=== PATIENT | female | born 1985 | race Caucasian/White ===

== ENCOUNTER 2024-09-28 08:13 | Inpatient (IN) ==
[2024-09-28] MEDS: LACTATED RINGER'S 1,000 ML IV PRN (09:10)
[2024-09-28] MEDS ORDERED: LIDOCAINE 1% LOCAL 20 ML VIAL INFIL PRN (09:14)
[2024-09-28] MEDS: BUPIVACAINE 0.25% PF 30 ML VIAL ONE (09:41)
[2024-09-28] MEDS: fentANYL 2 MCG/ML BUPIVacaine 0.125%-NSS 100ML BAG ONE (09:41)
[2024-09-28] MEDS: LIDOCAINE 2%/EPINEPHRINE 1:200,000 20 ML PF ONE (09:47)
[2024-09-28] MEDS: SODIUM CHLORIDE 0.9% PF INJ 10 ML VIAL ONE (09:47)
[2024-09-28] MEDS: fentaNYL citrate PF 100 MCG/2 ML VIAL ONE (09:47)
[2024-09-28] MEDS: PENICILLIN GK 6 MU in DEXTROSE 5% 250 ML IV STA (09:54)
--- NOTE | 2024-09-28 09:57 | Anesthesiology Consultation ---
Date of Service September 28, 2024 Assessment & Plan Chart Review Chart Review: Acceptable Risk for Labor Epidural Consults Requested none History Height/Weight Height: 5 ft Weight: 96.162 kg Allergies Allergy/AdvReac Type Severity Reaction Status Date / Time No Known Drug Allergies AdvReac Unknown Verified 09/28/24 08:44 Medications Home Medications Medication Instructions Recorded Confirmed Last Taken aspirin 81 mg chewable tablet 81 mg PO DAILY 09/28/24 09/28/24 09/27/24 07:00 omeprazole magnesium 20 mg 20 mg PO DAILY 09/28/24 09/28/24 09/27/24 07:00 tablet,delayed release (Prilosec OTC) vits no.124-ferrous fum 1 tab PO HS 09/28/24 09/28/24 09/27/24 21:00 27 mg iron-folic acid 800 mcg tablet ( Vitamin) Active Medications Generic Name Dose Route Start Last Admin Trade Name Freq PRN Reason Stop Dose Admin Lactated Ringer's 1,000 mls @ 125 mls/hr 09/28/24 09:14 09/28/24 09:54 Lr IV 09/29/24 09:13 0 mls/hr .Q8H PRN Infusion L&D Protocol Protocol Penicillin G Potassium 6 mu/ 262 mls @ 250 mls/hr 09/28/24 09:14 09/28/24 09:54 Dextrose IV 09/28/24 10:16 250 mls/hr NOW STA Administration Past Medical History Medical History (Updated 09/28/24 @ 08:43 by Slime Arambula RN) Overactive bladder Past Surgical History Surgical History (Updated 09/28/24 @ 08:43 by Slime Arambula RN) H/O wisdom tooth extraction Social History Smoking Status: Never smoker Hx Alcohol Use: No Hx Substance Use: No Physical Exam Vital Signs Last Vital Signs Temp 36.6 C 09/28/24 08:31 Pulse 84 09/28/24 09:54 Resp 20 09/28/24 08:31 BP 133/70 09/28/24 09:44 Pulse Ox 100 09/28/24 09:54
[2024-09-28] MEDS ORDERED: fentANYL 2 MCG/ML BUPIVacaine 0.125%-NSS 100ML BAG EPI PRN (09:58)
[2024-09-28] MEDS ORDERED: ROPIVACAINE 0.5% PF 5 MG/ML 20 ML VIAL EPI PRN (09:58)
[2024-09-28] MEDS ORDERED: ePHEDrine sulfate 50 MG/ML AMP IV PRN (09:58)
[2024-09-28] MEDS ORDERED: fentaNYL citrate PF 100 MCG/2 ML VIAL EPI PRN (09:58)
[2024-09-28] MEDS ORDERED: SODIUM CHLORIDE 0.9% PF INJ 10 ML VIAL EPI PRN (09:58)
[2024-09-28] MEDS ORDERED: LIDOCAINE 2% MPF LOCAL 5 ML VIAL EPI PRN (09:58)
[2024-09-28] MEDS ORDERED: NALBUPHINE HCL INJ 10 MG/ML AMP IV PRN (09:58)
[2024-09-28] MEDS ORDERED: NALOXONE HCL 0.4 MG/1 ML VIAL/CARP IV PRN (09:58)
[2024-09-28] MEDS ORDERED: fentaNYL citrate PF 100 MCG/2 ML VIAL EPI STA (09:58)
[2024-09-28] MEDS ORDERED: NALOXONE HCL 1 MG in SODIUM CHLORIDE 0.9% 1,000 ML IV PRN (09:58)
[2024-09-28] MEDS ORDERED: BUPIVACAINE 0.25% PF 30 ML VIAL EPI PRN (09:58)
[2024-09-28] MEDS ORDERED: LIDOCAINE 2%/EPINEPHRINE 1:200,000 20 ML PF EPI STA (09:58)
[2024-09-28] MEDS ORDERED: diphenhydrAMINE 50 MG/ML VIAL IV PRN (09:58)
[2024-09-28] MEDS ORDERED: BUPIVACAINE 0.25% PF 30 ML VIAL EPI STA (09:58)
[2024-09-28] MEDS ORDERED: SODIUM CHLORIDE 0.9% PF INJ 10 ML VIAL EPI STA (09:58)
--- NOTE | 2024-09-28 10:32 | Obstetrical Progress Note ---
Date of Service September 28, 2024 Assessment & Plan Admission and Anticipated Discharge Date Admission Date: September 28, 2024 Subjective 39yo @ 36 + weeks resent in labor FHR; CAT1' Ctx 2-3min Bedside sono; VT VE; 10/SROM- clear fluid at 05;00hrs GBs obtained Started on PCN for GBs Prophylaxis Anticipate VD Results & Data Vital Signs (Past 12 Hours) Vital Signs Temp Pulse Resp BP Pulse Ox 09/28/24 10:25 83 09/28/24 10:25 132/64 09/28/24 10:24 99 09/28/24 10:24 87 09/28/24 10:20 75 09/28/24 10:20 127/55 L 09/28/24 10:19 100 09/28/24 10:19 87 09/28/24 10:16 20 09/28/24 10:16 20 09/28/24 10:16 80 09/28/24 10:16 139/63 09/28/24 10:14 98 09/28/24 10:14 90 09/28/24 10:11 81 09/28/24 10:11 124/91 09/28/24 10:09 100 09/28/24 10:09 83 09/28/24 10:04 100 09/28/24 10:04 78 09/28/24 10:01 20 09/28/24 10:01 20 09/28/24 09:59 100 09/28/24 09:59 92 H 09/28/24 09:54 100 09/28/24 09:54 84 09/28/24 09:49 100 09/28/24 09:49 91 H 09/28/24 09:44 100 09/28/24 09:44 93 H 09/28/24 09:44 133/70 09/28/24 09:42 20 09/28/24 09:42 20 09/28/24 09:42 87 09/28/24 09:42 130/76 09/28/24 09:40 84 09/28/24 09:40 125/69 09/28/24 09:39 97 09/28/24 09:39 88 09/28/24 09:38 83 09/28/24 09:38 123/67 09/28/24 09:36 81 09/28/24 09:36 109/64 04/08/25 09:34 97 09/28/24 09:34 82 09/28/24 09:34 75 09/28/24 09:34 140/70 09/28/24 09:32 71 09/28/24 09:32 123/76 09/28/24 09:29 100 09/28/24 09:29 81 09/28/24 09:26 94 09/28/24 09:26 81 09/28/24 09:24 97 09/28/24 09:24 81 09/28/24 09:23 87 09/28/24 09:23 138/82 09/28/24 08:31 36.6 C 20 09/28/24 08:29 72 144/78 H
[2024-09-28 10:42] LABS: Hematocrit (blood only) 33.4 % (37.0-47.0); Mean Corpuscular Hemoglobin 30.5 pg (25.0-34.0); Mean Corpuscular Hgb Conc 32.9 g/dL (32.0-36.0); Mean Corpuscular Volume 92.5 fL (80.0-100.0); Mean Platelet Volume 11.9 fL (9.4-12.4); Platelet Count 210 K/uL (130-400); RDW Coefficient of Variation 13.6 % (11.5-14.5); Red Blood Count 3.61 M/uL (4.20-5.40); White Blood Count 15.63 K/ul (4.8-10.8)
[2024-09-28] MEDS ORDERED: PENICILLIN GK 3 MU in DEXTROSE 5% 100 ML IV PRN (12:14)
[2024-09-28] MEDS: OXYTOCIN 30 UNITS/NSS 30 UNITS/500 ML BAG IV PRN (12:34)
[2024-09-28] MEDS: METHYLERGONOVINE MALEATE 0.2 MG/ML AMP ONE (12:37)
[2024-09-28] MEDS: miSOPROStoL 200 MCG TAB ONE (12:38)
[2024-09-28] MEDS: ePHEDrine sulfate 50 MG/ML AMP ONE (12:39)
[2024-09-28] MEDS ORDERED: miSOPROStoL 200 MCG TAB PR ONE (12:42)
[2024-09-28] MEDS ORDERED: DIPHTHER/TETAN/PERTUS Vaccine (Tdap, Adol/Adult) 0.5mL IM ONE (12:42)
[2024-09-28] MEDS ORDERED: METHYLERGONOVINE MALEATE 0.2 MG/ML AMP IM ONE (12:42)
[2024-09-28] MEDS ORDERED: bisacodyL 10 MG SUPP PR PRN (12:42)
[2024-09-28] MEDS ORDERED: OXYTOCIN 30 UNITS/NSS 30 UNITS/500 ML BAG IV PRN (12:42)
[2024-09-28] MEDS ORDERED: HYDROCORTISONE ACETATE 25 MG SUPP PR PRN (12:42)
[2024-09-28] MEDS ORDERED: ACETAMINOPHEN 325 MG TAB PO PRN (12:42)
--- NOTE | 2024-09-28 12:45 | Delivery Summary ---
Vaginal Delivery Summary Date of Service September 28, 2024 Vaginal Delivery Summary DELIVERY NOTE Patient delivered a live male in left occiput anterior presentation there was left shoulder cord which was easily reduced. was delivered and placed on mother's abdomen. Delayed cord clamping was performed. Cord blood is obtained Cord gasses are obtainded Meconium was mild Placenta is spontaneously delivered. Placenta appears grossly normal and has 3 vessel cord Inspection of the perineum showed a second-degree midline laceration. Laceration is repaired in layers with 2-0 Vicryl in layers Rectal exam post repair showed good sphincter tone no sutures palpated in the r ectum. Quantitative blood loss is 180 cc per Infants weight and scores are in the pediatric record Mother and baby are stable in in the recovery
[2024-09-28 13:18] LABS: Base Excess Cord Arterial Bld -5.2 mEq/L (-9-1.8); CO2 Cord Arterial Blood 40 mmHg (39.1-73.5); HCO3 Cord Arterial Blood 21 mmol/L (19.7-28.5); Oxygen Sat Cord Arterial Blood 65.1 % (<60); PO2 Cord Arterial Blood 31 mmHg (4.1-31.7); pH Cord Arterial Blood 7.32 (7.1-7.38)
[2024-09-28 13:20] LABS: Base Excess Cord Venous Blood -3.8 mEq/L (-7.7-1.9); Cord Venous Blood HCO3 25 mmol/L (18.4-26.8); Cord Venous Blood PCO2 61 mmHg (30.4-57.2); Cord Venous Blood PO2 < 20 mmHg (14.1-43.3); Cord Venous Blood pH 7.22 (7.20-7.44); O2 Saturation Cord Venous Bld < 60.0 % (<68)
--- OUTSIDE RECORDS SUMMARY | 2024-09-28 14:39 | External Medical Summary | Summary of Care ---
Author Name Unknown Organization [facility] Address [address] [facility] [place] [address] Phone [phone] Care Team Providers Care Roll Operator Name Role Phone Von Lim MD Primary Care Provider [phone] Reason for Visit * Reason Comments Status Check Anemia Follow-Up Encounter Details Date Type Department Care Team (Late st Contact Info) Description 09/17/2024 2:30 PM EDT Pharmacy Pharmacy, [facility] [address] [place], [place] [id number] Clinic, [facility] [address] [place] [address] Iron deficiency anemia, unspecified iron deficiency anemia type*; Antepartum anemia complicating Allergies No known active allergiesdocumented as of this encounter (statuses as of 09/17/2024) Medications Loratadine 10 MG Oral Capsule Take 1 Capsule by mouth in the morning. Active 28-0.8 MG Oral Tablet Take by mouth. Active Aspirin 81 MG Oral Tablet Chewable Take 1 Tablet by mouth in the morning. 04/19/2024 Active Omeprazole 20 MG Oral Capsule Delayed Release (PriLOSEC) Take 1 Capsule by mouth in the morning. 30 Capsule 3 09/01/2024 Active documented as of this encounter (statuses as of 09/17/2024) Active Problems Problem Noted Date Diagnosed Date Iron deficiency anemia 08/23/2024 Antepartum anemia complicating 025 Abnormal glucose tolerance in mother complicatin g 05/18/2024 Overview (05/18/2024): Failed early glucola. 3hr ordered High-risk 05/17/2024 Obesity in , antepartum 05/17/2024 Overview (05/17/2024): Early GTT The patient's pre-gravid BMI is 31.76. Antepartum multigravida of advanced maternal age 1004/19/2024 Obesity, Class I, BMI 30.0-34.9 (see actual BMI) 05/30/2021 OAB (overactive bladder) 05/28/2021 Estimated Date of Delivery Comme nts Yes 10/25/2024 Based on last me nstrual period of 01/19/2024 (Exact Date) documented as of this encounter (statuses as of 09/17/2024) Resolved Problems Problem Noted Date Diagnosed Date Resolved Date NO KNOWN PROBLEMS 10/31/2008 05/28/2021 documented as of this encounter (statuses as of 09/17/2024) Immunizations Name Administration Dates Next Due H1N1 2009 Influenza, IM 07/28/2009 Seasonal Influenza Vac., MDV , IM, 0.5 mL (Fluzone) 04/25/2017,05/24/2014,07/28/2009 Seasonal Influenza, PF, 6 M & above, IM , (FluLaval or Fluzone) 05/31/2022,05/12/2020 Seasonal Influenza, Quadriva lent, No Preserve, IM 04/20/2016 TDAP (age 10 and older)(Boostrix) 05/31/2022 TDAP, Age 7 and older, IM (Adacel) 08/04,02/14/2011,07/28/2009(Deferre d: Patient Refused) documented as of this encounter Social History Tobacco Use Types Packs/Day Years Used Date Smoking Tobacco: Never Smokeless Tobacco: Never Alcohol Use Standard Drinks/Week Comments Not Currently 0 (1 standard drink = 0.6 oz pur e alcohol) rarely PHQ-2 Answer Date Recorded PHQ Adult Total Score 0 06/04/2024 Hunger Vital Sign Answer Date Recorded Within the past 12 months, y ou worried that your food would run out before you got the money to buy more. Never true 06/04/20 24 Within the past 12 months, t he food you bought just didn't last and you didn't have money to get more. Never true 06/04/2024 [place] Depression Scale Answer Date Recorded [place] Depression Scale Total 6 09/15/2024 The thought of harming myself has occurred to me . Never 09/15/2024 Childcare Answer Date Recorded Do you feel overwhelmed with taking care of a child, family member or friend? No 06/04/2024 Does your family need help f inding childcare? (Household - for ages 0-17 years) Not on file 06/04/2024 Clothing Answer Date Recorded Have you been unable to get clothing when it was really needed? No 06/04/2024 Is your family able to get c lothes or diapers when needed? (Household - for ages 0-17 years) Not on file 06/04/2024 Personal Safety Answer Date Recorded Do you feel unsafe or have concerns for your saf ety? No 06/04/2024 Do you have concerns for you r family's safety? (Household - for ages 0-17 years) Not on file 06/04/2024 Utilities Answer Date Recorded Do you have trouble paying y our heating, water, or electric bill? No 06/04/2024 Is your family able to pay t he heat, water, or electric bill? (Household - for ages 0-17 years) Not on file 06/04/2024 Does your family have access to good internet? (Household - for ages 0-17 years) Not on file 06/04/2024 Employment Status Answer Date Recorded Are you unemployed or without regular income? No 06/04/2024 Does the household have a re gular source of income? (Household - for ages 0-17 years) Not on file 06/04/2024 Social Connections Answer Date Recorded How often do you feel lonely or isolated from th ose around you? Rarely 06/04/2024 Financial Resource Strain Answer Date R ecorded Do you have any trouble payi ng for your medications, or do you think you might in the future? No 06/04/2024 Does your family have troubl e paying for medicine? (Household - for ages 0-17 years) Not on file 06/04/2024 Transportation Needs Answer Date Record ed Do you have trouble getting a ride to medical visits or work? (Adult - for ages 18 years and over) Not on file 06/04/2024 Does your family have a hard time getting a ride to doctors visits? (Household - for ages 0-17 years) Not on file 06/04/2024 Has lack of transportation k ept you from medical appointments, meetings, work, or from getting things needed for daily living? Check all that apply. No 06/04/2024 Do you (or your family) have trouble finding or paying for a ride (transportation)? (Household - for ages 0-17 years) Not on file 06/04/2024 Housing Stability Answer Date Recorded Do you currently live in a s helter or have no steady place to sleep at night? No 06/04/2024 Do you think you are at risk of becoming homeless? (Adult - for ages 18 years and over) Not on file 06/04/2024 Does your family worry about paying for your home or becoming homeless? (Household - for ages 0-17 years) Not on file 1 08/05/2023 Are you homeless or worried that you might be in the future? No 06/04/2024 Are you (or your family) ishmael eless or worried that you might be in the future? (Household - for ages 0-17 years) Not on file Food Insecurity Answer Date Recorded Do you need food for this week? No 06/04/2024 Are you able to get enough f ood for your family? (Household - for ages 0-17 years) Not on file 06/04/2024 Does your family need food t his week? (Household - for ages 0-17 years) Not on file 06/04/2024 Do you always have enough fo od for your family? (Household - for ages 0-17 years) Not on file 06/04/2024 Food Insecurity Answer Date Recorded Within the past 12 months, y ou worried that your food would run out before you got the money to buy more. Never true 06/04/20 24 Within the past 12 months, t he food you bought just didn't last and you didn't have money to get more. Never true 06/04/2024 Do you need food for this week? No 06/04/2024 Estimated Date of Delivery Comme nts Yes 10/25/2024 Based on last me nstrual period of 01/19/2024 (Exact Date) Sex and Gender Information Value Date Recorded Sex Assigned at Female 10/30/2022 7:49 AM EDT Legal Sex Female 7:19 AM EST Gender Identity Female 10/30/2022 7:49 AM EDT Sexual Orientation Straight 10/30/2022 7: 49 AM EDT Occupation Industry Job Start Date Job End Date [employer] Not on file Not on file Not on fi le documented as of this encounter Progress Notes * Imani Smalls RPh - 09/17/2024 12:47 PM EDT CBCd, ferritin, iron screen, retic panel, B12, FA ordered for 09/29/24. Imani Smalls PharmD, [facility] Clinical Pharmacist [facility] (P: [phone]) 09/17/2024 12:47 PM * Asmita Garcia PHARM Tech - 09/17/2024 11:43 AM EDT Patient Phone Numbers Call to patient to schedule labs. Spoke to pt, pt scheduled labs on 09/29 before OB appt. Patient received Infed on 09/03. Labs due on 09/29. GA: 34w4d Estimated Date of Delivery: 10/25/24 Pharmacist - please place appropriate lab orders. Thank you, Asmita Garcia Pile Driver Operator Helper [facility] 09/17/2024,11:43 AM documented in this encounter Plan of Treatment Upcoming Encounters Date Type Department Care Team (Late st Contact Info) Description 09/29/2024 7:45 AM EDT Office Visit Gynecology/Obstetrics Kelseytoney Chadwick [address] [place] [address] Caron Mohr PA-C [address] [phone] 09/29/2024 8:30 AM EDT Laboratory Laboratory, [facility] [address] [facility] [place] [id number] ChadwickDylon ziegler Kayley [address] [facility] [place] [address] 09/30/2024 9:30 AM EDT Pharmacy Pharmacy, [facility] [address] [place] [address] Clinic, [facility] [address] [place] [address] Scheduled Orders Name Type Priority Associated Diagnoses Orde r Schedule CBC WITH WBC DIFFERENTIAL Lab Routine Antepartum anemia complicating Expected: 09/29/2024, Expires: 08/20/2025 IRON SCREEN, INCLUDING TIBC Lab Routine Antepartum anemia complicating Expected: 09/29/2024, Expires: 08/20/2025 FERRITIN Lab Routine Antepartum anemia complicating Expected: 09/29/2024, Expires: 08/20/2025 RETICULOCYTE PANEL Lab Routine Antepartum anemia complicating Expected: 09/29/2024, Expires: 08/20/2025 FOLIC ACID Lab Routine Antepartum anemia complicating Expected: 09/29/2024, Expires: 08/20/2025 VITAMIN B12 Lab Routine Antepartum anemia complicating Expected: 09/29/2024, Expires: 08/20/2025 Health Maintenance Due Date Last Done Comments Hepatitis B Vaccine (1 of 3 - 19+ 3-dose series) 2002 COVID-19 Vaccine ( season) 2024 Influenza Vaccine (FLU shot) (#1) 2024 05/31/2022, 04/04/2021, 05/12/2020, Additional history exists Mammogram 04/04/2024 04/04/2023 Depression Screening 06/04/2025 06/04/2024 Pap Smear 12/13/2025 12/13/2022, 01/0 02/2020, 12/08/2015, Additional history exists Diabetes Screening 04/19/2027 04/19/2024, 1 08/01/2021, 05/31/2022 Cervical Cancer Screening 12/14/2027 HPV/Co-Test 12/14/2027 12/13/2022 Lipid Panel 06/02/2028 06/02/2023, 07/28/2009 DTap/Tdap Vaccines (4 - Td or Tdap) 08/04/2034 08/04/2024, 05/31/2022, 02/14/2011 HPV (Gardasil) Vaccine Aged Out No lo nger eligible based on patient's age to complete this topic MENINGOCOCCAL (MENACTRA/MENVEO) Aged Out No longer eligible based on patient's age to complete this topic Meningitis B Vaccine (Bexsero/Trumemba) Aged Out No longer eligible based on patient's age to complete this topic Pneumococcal Vaccine: Pediatrics (0 to 5 Years) and At-Risk Patients (6 to 18 Years and 19+ Years) Aged Out No longer eligib le based on patient's age to complete this topic documented as of this encounter Medical Devices Not on filedocumented as of this encounter Visit Diagnoses Diagnosis Iron deficiency anemia, unspecified iron deficiency anemia type- Primary Antepartum anemia complicating Anemia, antepartum documented in this encounter Care Teams Roll Operator Relationship Specialty Start Date End Date Von Lim MD [address] [place] [address] PCP - General Family Medicine 11/14/20 documented as of this encounter
--- OUTSIDE RECORDS SUMMARY | 2024-09-28 14:39 | External Medical Summary | Summary of Care ---
Author Name Unknown Organization [facility] Address [address] [facility] [place] [address] Phone [phone] Care Team Providers Care World Designer Name Role Phone Von Lim MD Primary Care Provider [phone] Reason for Visit * Reason Comments Return Visit Encounter Details Date Type Department Care Team (Late st Contact Info) Description 09/15/2024 7:45 AM EDT Office Visit Gynecology/Obstetric s Esteban Chadwick [address] [place] [address] Caron Mohr PA-C [address] [place] [address] High-risk in third trimester*; Antepartum multigravida of advanced maternal age; Obesity in , antepartum; Abnormal glucose tolerance in mother complicating ; Antepartum anemia complicating Allergies No known active allergiesdocumented as of this encounter (statuses as of 09/15/2024) Medications Loratadine 10 MG Oral Capsule Take [...] as of this encounter (statuses as of 09/15/2024) Active Problems Problem Noted Date Diagnosed Date [...] as of this encounter (statuses as of 09/15/2024) Resolved Problems Problem Noted Date Diagnosed Date Resolved Date NO KNOWN PROBLEMS 10/31/2008 05/28/2021 documented as of this encounter (statuses as of 09/15/2024) Immunizations Name Administration Dates Next Due H1N1 [...] money to get more. Never true 06/04/2024 [place] Depression Scale Answer Date Recorded [place] Depression Scale Total 2 04/19/2024 The thought of harming myself has occurred to me . Never 04/19/2024 Childcare Answer Date Recorded Do you feel [...] fi le documented as of this encounter Last Filed Vital Signs Vital Sign Reading Time Taken Comments Blood Pressure 124/70 09/15/2024 7:43 AM EDT Pulse - - Temperature - - Respiratory Rate - - Oxygen Saturation - - Inhaled Oxygen Concentration - - Weight 96.2 kg (212 lb) 09/15/2024 7:43 AM EDT Height 154.9 cm (5' 0.98") 09/15/2024 7:43 AM ED T Body Mass Index 40.08 09/15/2024 7:43 AM EDT documented in this encounter Progress Notes * Caron Mohr PA-C - 09/15/2024 7:50 AM EDT 34w2d Had IV iron infusion 3, plans repeat labs in 4-[address] Lab orders in place. Reviewed GBS next visit Labor instructions given. No complaints. Denies LOF, VB, contractions. Pos fm. RTC in 2 weeks Caron Mohr PA-C documented in this encounter Nursing Notes * Renetta Jean LPN - 09/15/2024 7:51 AM EDT 34w2d Denies concerns Reviewed labor instructions. documented in this encounter Plan of Treatment Upcoming Encounters Date Type Department Care Team (Late st Contact Info) Description 09/17/2024 2:30 PM EDT Pharmacy Pharmacy, [facility] [address] [place] [address] Clinic, [facility] [address] [place] [address] 09/29/2024 7:45 AM EDT Office Visit Gynecology/Obstetrics Esteban Chadwick [address] [place] [address] Caron Mohr PA-C [address] [place] [address] Health Maintenance Due Date Last Done Comments Hepatitis B Vaccine (1 of 3 - 19+ 3-dose series) 2002 COVID-19 Vaccine ( - 2023- season) 2024 Influenza Vaccine (FLU shot) (#1) 2024 05/31/2022, 04/04/2021, 05/12/2020, Additional history exists Mammogram 04/04/2024 04/04/2023 Depression Screening 06/04/2025 06/04/2024 Pap Smear 12/13/2025 12/13/2022, 0102/2020, 12/08/2015, Additional history exists Diabetes Screening 04/19/2027 [...] and 19+ Years) Aged Out No longer elijhb guero based on patient's age to complete this topic documented as of this encounter Medical Devices Not on filedocumented as of this encounter Visit Diagnoses Diagnosis High-risk in third trimester- Primary Antepartum multigravida of advanced maternal age Obesity in , antepartum Obesity complicating , childbirth, or the puerperium, antepartum condition or complication Abnormal glucose tolerance in mother complicating Abnormal maternal glucose tolerance, complicating , childbirth, or the puerperium, unspecified as to episode of care Antepartum anemia complicating Anemia, antepartum documented in this encounter Care Teams World Designer Relationship Specialty Start Date End Date Von Lim MD [address] [place] [address] PCP - General Family Medicine 11/14/20 documented as of this encounter
--- OUTSIDE RECORDS SUMMARY | 2024-09-28 14:39 | External Medical Summary | Summary of Care ---
Author Name Unknown Organization [facility] Address [address] [facility] [place] [address] Phone [phone] Care Team Providers Care Geophysical Computer Name Role Phone Von Lim MD Primary Care Provider [phone] [phone] Encounter Details Date Type Department Care Team (Late st Contact Info) Description 09/07/2024 Orders Only PATIENT PORTAL DO NOT DELETE THIS DEPT USED BY [place] [id number] Allergies No known active allergiesdocumented as of this encounter (statuses as of 09/07/2024) Medications Loratadine 10 MG Oral Capsule Take [...] as of this encounter (statuses as of 09/07/2024) Active Problems Problem Noted Date Diagnosed Date [...] as of this encounter (statuses as of 09/07/2024) Resolved Problems Problem Noted Date Diagnosed Date Resolved Date NO KNOWN PROBLEMS 10/31/2008 05/28/2021 documented as of this encounter (statuses as of 09/07/2024) Immunizations Name Administration Dates Next Due H1N1 [...] money to get more. Never true 06/04/2024 [place] Depression Scale Answer Date Recorded [place] Depression Scale Total 2 04/19/2024 The thought [...] fi le documented as of this encounter Plan of Treatment Upcoming Encounters Date Type Department Care Team (Late st Contact Info) Description 09/13/2024 2:30 PM EDT Pharmacy Pharmacy, [place] [address] [place] [address] Clinic, [facility] [address] [place] [address] 09/15/2024 7:45 AM EDT Office Visit Gynecology/Obstetrics Esteban Chadwick [address] [place] [address] Caron Mohr PA-C [address] [place] [address] Health Maintenance Due Date Last Done Comments Hepatitis B Vaccine (1 of 3 - 19+ 3-dose series) 2002 COVID-19 Vaccine ( - season) 2024 Influenza Vaccine (FLU shot) (#1) [...] Not on filedocumented as of this encounter Care Teams Geophysical Computer Relationship Specialty Start Date End Date Von Lim MD [address] [place] [address] PCP - General Family Medicine 11/14/20 documented as of this encounter
--- OUTSIDE RECORDS SUMMARY | 2024-09-28 14:39 | External Medical Summary | Summary of Care ---
Author Name Unknown Organization [facility] Address [address] [facility] [place] [address] Phone [phone] Care Team Providers Care Used Car Lot Porter Name Role Phone Von Lim MD Primary Care Provider [phone] [phone] Reason for Referral * Evaluate & Treat - Unlimited Visits (Within 10 days (routine)) - Authorized Specialty Diagnoses / Procedures Referred By Contac t Referred To Contact Pharmacist / Pharmacy Diagnoses RACHELLE (iron deficiency anemia) Janee Leos CRNP [address] [place] [address] Phone: tel: fax: Referral ID Status Reason Start Date Expiration Date Visits Requested Visits Authorized [id number] Authorized Specialty Services Required 08/05/2024 02/01/2025 99 99 Question Answer Referral Priority Within 10 days (routine) Where should this appointment be scheduled? [facility] Referring Provider Role: Specialist Specialty: channeler runner Reason for Referral: Anemia Comments Pharmacist Medication Therapy Management: Iron deficiency anemia Lisandro Mckenna RN Reason for Visit * Reason Onset Date Comments Blood Management Program 08/05/2024 Encounter Details Date Type Department Care Team (Late st Contact Info) Description 08/05/2024 Telephone Patient Blood Management, [place] [address] [place] [facility] [place] [address] Janee Leos CRNP [address] [place] [address] Blood Management Program Allergies No known active allergiesdocumented as of this encounter (statuses as of 09/13/2024) Medications Loratadine 10 MG Oral Capsule Take 1 Capsule by mouth in the morning. Active 28-0.8 MG Oral Tablet Take by mouth. Active Aspirin 81 MG Oral Tablet Chewable Take 1 Tablet by mouth in the morning. 04/19/2024 Active documented as of this encounter (statuses as of 09/13/2024) Active Problems Problem Noted Date Diagnosed Date [...] as of this encounter (statuses as of 09/13/2024) Resolved Problems Problem Noted Date Diagnosed Date Resolved Date NO KNOWN PROBLEMS 10/31/2008 05/28/2021 documented as of this encounter (statuses as of 09/13/2024) Immunizations Name Administration Dates Next Due H1N1 [...] money to get more. Never true 06/04/2024 [place] Depression Scale Answer Date Recorded [place] Depression Scale Total 2 04/19/2024 The thought [...] fi le documented as of this encounter Miscellaneous Notes * Telephone Encounter - Lisandro Mckenna RN - 08/05/2024 3:04 PM EST Recommend IV iron per OB MTM guidelines. Patient agreeable, prefers infusion at [facility]. documented in this encounter Plan of Treatment Upcoming Encounters Date Type Department Care Team (Late st Contact Info) Description 09/15/2024 7:45 AM EDT Office [facility] [address] [place] [address] Caron Mohr PA-C [address] [place] [address] 09/17/2024 2:30 PM EDT Pharmacy Pharmacy, [place] [address] [place] [address] Clinic, Anemia [address] [place] [address] Scheduled Referrals Name Type Priority Associated Diagnoses Orde r Schedule PHARMACIST MEDS THERAPY MGMT REFERRAL OP Referral Within 10 days (routine) RACHELLE (iron deficiency anemia) Ordered: 08/05/2024 Health Maintenance Due Date Last Done Comments Hepatitis B Vaccine (1 of 3 - 19+ 3-dose series) 2002 COVID-19 Vaccine (2023- season) 2024 Influenza Vaccine (FLU shot) (#1) [...] as of this encounter Visit Diagnoses Diagnosis RACHELLE (iron deficiency anemia)- Primary Iron deficiency anemia, unspecified documented in this encounter Care Teams Used Car Lot Porter Relationship Specialty Start Date End Date Von Lim MD [address] [place] [address] PCP - General Family Medicine 11/14/20 documented as of this encounter
--- OUTSIDE RECORDS SUMMARY | 2024-09-28 14:40 | External Medical Summary | Summary of Care ---
Author Name Unknown Organization [facility] Address [address] [facility] [place] [address] Phone [phone] Care Team Providers Care Bag Liner Name Role Phone Von Lim MD Primary Care Provider +1 [phone] Reason for Referral * (Within 10 days (routine)) Specialty Diagnoses / Procedures Referred By Porfirio rapp Referred To Contact Hyperbaric Medicine Diagnoses Antepartum anemia complicating Janee Leos CRNP [address] [place] [address] Phone: tel: fax: Referral ID Status Reason Start Date Expiration Date Visits Re quested Visits Authorized Question Answer Referral Priority Within 10 days (routine) Where should this appointment be scheduled? [facility] Reason for Visit * Reason Onset Date Comments anemia 08/05/2024 Encounter Details Date Type Department Care Team (Late st Contact Info) Description 08/05/2024 Telephone Gynecology/Obstetrics [facility] [address] [place] [address] Janee Leos CRNP [address] [place] [address] anemia Allergies No known active allergiesdocumented as of this encounter (statuses as of 08/05/2024) Medications Loratadine 10 MG Oral Capsule Take 1 Capsule by mouth in the morning. Active 28-0.8 MG Oral Tablet Take by mouth. Active Aspirin 81 MG Oral Tablet Chewable Take 1 Tablet by mouth in the morning. 04/19/2024 Active Omeprazole 20 MG Oral Capsule Delayed Release (PriLOSEC) Take 1 Capsule by mouth in the morning. Active documented as of this encounter (statuses as of 08/05/2024) Active Problems Problem Noted Date Diagnosed Date Antepartum anemia complicating 025 Abnormal glucose tolerance [...] as of this encounter (statuses as of 08/05/2024) Resolved Problems Problem Noted Date Diagnosed Date Resolved Date NO KNOWN PROBLEMS 10/31/2008 05/28/2021 documented as of this encounter (statuses as of 08/05/2024) Immunizations Name Administration Dates Next Due H1N1 [...] money to get more. Never true 06/04/2024 [place] Depression Scale Answer Date Recorded [place] Depression Scale Total 2 04/19/2024 The thought [...] encounter Miscellaneous Notes * Telephone Encounter - Janee Leos CRNP - 08/05/2024 11:55 AM EST Order placed. * Telephone Encounter - Lorie Raymundo LPN - 08/05/2024 11:29 AM EST Spoke to pt and message below reviewed. Pt verbalized understanding and in agreement for referral to blood management for infusions. Please place referral * Telephone Encounter - Janee Leos CRNP - 08/05/2024 11:18 AM EST Please notify pt that she passed her 3hr glucose test. She is anemic, however. Based on her levels,recommend IV iron infusion. Once informed and agreeable, please route back and I'll place the order. documented in this encounter Plan of Treatment Upcoming Encounters Date Type Department Care Team (Late st Contact Info) Description 08/18/2024 8:00 AM EST Office Visit Gynecology/Obstetrics [facility] [address] [place] [address] Janee Leos CRNP [address] [place] [address] Scheduled Referrals Name Type Priority Associated Diagnoses Orde r Schedule BLOOD MANAGEMENT REFERRAL Referral Within 10 days (routine) Antepartum anemia complicating Ordered: 08/05/2024 Health Maintenance Due Date Last Done Comments Hepatitis B Vaccine (1 of 3 - 19+ 3-dose series) 2002 COVID-19 Vaccine ( - 2023- season) 2024 Influenza Vaccine (FLU shot) (#1) 2024 05/31/2022, 04/04/2021, 05/12/2020, Additional history exists Mammogram 04/04/2024 04/04/2023 Depression Screening 06/04/2025 06/04/2024 Pap Smear 12/13/2025 12/13/2022, 02/2020, 12/08/2015, Additional history exists Diabetes Screening [...] as of this encounter Visit Diagnoses Diagnosis Antepartum anemia complicating - Primary Anemia, antepartum documented in this encounter Care Teams Bag Liner Relationship Specialty Start Date End Date Von Lim MD [address] [place] [address] PCP - General Family Medicine 11/14/20 documented as of this encounter
--- OUTSIDE RECORDS SUMMARY | 2024-09-28 14:40 | External Medical Summary | Summary of Care ---
Author Name Unknown Organization [facility] Address [address] [place] [address] Phone [phone] Care Team Providers Care Sped Teacher Name Role Phone Von Lim MD Primary Care Provider [phone] [phone] Encounter Details Date Type Department Care Team (Late st Contact Info) Description 08/23/2024 Orders Only Pharmacy, [place] [address] [place], [place] [id number] [facility] [address] [place] [address] Allergies No known active allergiesdocumented as of this encounter (statuses as of 08/23/2024) Medications Loratadine 10 MG Oral Capsule Take [...] as of this encounter (statuses as of 08/23/2024) Active Problems Problem Noted Date Diagnosed Date [...] as of this encounter (statuses as of 08/23/2024) Resolved Problems Problem Noted Date Diagnosed Date Resolved Date NO KNOWN PROBLEMS 10/31/2008 05/28/2021 documented as of this encounter (statuses as of 08/23/2024) Immunizations Name Administration Dates Next Due H1N1 2008 Influenza, IM 07/28/2009 Seasonal Influenza Vac., MDV [...] money to get more. Never true 06/04/2024 [place] Depression Scale Answer Date Recorded [place] Depression Scale Total 2 04/19/2024 The thought [...] No 06/04/2024 Are you (or your family) ismhael eless or worried that you might be [...] Care Team (Late st Contact Info) Description 09/01/2024 7:45 AM EDT Office Visit Gynecology/Obstetrics [facility] [address] [place] [address] Caron Mohr PA-C [address] [place] [address] 09/03/2024 10:00 AM EDT Pharmacy Pharmacy, [address] [address] [facility] [place] [address] [address] [place], [place] [id number] Health Maintenance Due Date Last Done Comments [...] filedocumented as of this encounter Care Teams Sped Teacher Relationship Specialty Start Date End Date Von Lim MD [address] [place] [address] PCP - General Family Medicine 11/14/20 documented as of this encounter
--- OUTSIDE RECORDS SUMMARY | 2024-09-28 14:40 | External Medical Summary | Summary of Care ---
Author Name Unknown Organization [facility] Address [address] [facility] [place] [address] Phone [phone] Care Team Providers Care Community Relations Officer Name Role Phone Von Lim MD Primary Care Provider [phone] [phone] Reason for Visit * Reason Onset Date Comments Other 08/23/2024 InFed Encounter Details Date Type Department Care Team (Late st Contact Info) Description 08/23/2024 Telephone Hematology/Oncology Treatment, [place] [address] [place] [address] Janee Leos CRNP [address] [place] [address] Other (InFed) Allergies No known active allergiesdocumented as of this encounter (statuses as of 08/24/2024) Medications Loratadine 10 MG Oral Capsule Take [...] as of this encounter (statuses as of 08/24/2024) Active Problems Problem Noted Date Diagnosed Date [...] as of this encounter (statuses as of 08/24/2024) Resolved Problems Problem Noted Date Diagnosed Date Resolved Date NO KNOWN PROBLEMS 10/31/2008 05/28/2021 documented as of this encounter (statuses as of 08/24/2024) Immunizations Name Administration Dates Next Due H1N1 [...] money to get more. Never true 06/04/2024 [place] Depression Scale Answer Date Recorded [place] Depression Scale Total 2 04/19/2024 The thought [...] encounter Miscellaneous Notes * Telephone Encounter - Liz Medina RN - 08/23/2024 4:15 PM EST [place] is signed. Scheduling: please call patient to schedule 3 hour appt "infed" (Janee Leos). Thanks! * Telephone Encounter - Leydi Mohr LPN - 08/23/2024 11:22 AM EST Order received for InFed [place] plan built and routed to provider No prior authorization required Awaiting provider signature before scheduling patient. documented in this encounter Plan of Treatment Upcoming Encounters Date Type Department Care Team (Late st Contact Info) Description 09/01/2024 7:45 AM EDT [facility] [address] [place] [address] Caron Mohr PA-C [address] [place] [address] 09/03/2024 10:00 AM EDT Pharmacy Pharmacy, [place] [address] [place], [place] [id number] Clinic, [facility] [address] [place] [address] Health Maintenance Due Date Last Done Comments [...] filedocumented as of this encounter Care Teams Community Relations Officer Relationship Specialty Start Date End Date Von Lim MD [address] [place] [address] PCP - General Family Medicine 11/14/20 documented as of this encounter
--- OUTSIDE RECORDS SUMMARY | 2024-09-28 14:40 | External Medical Summary | Summary of Care ---
Author Name Unknown Organization [facility] Address [address] [facility] [place] [address] Phone [phone] Care Team Providers Care Hereditary Cancer Program Coordinator Name Role Phone Von Lim MD Primary Care Provider [phone] [phone] Reason for Visit * Reason Onset Date Comments Other 08/23/2024 InFed Encounter Details Date Type Department Care Team (Late st Contact Info) Description 08/23/2024 Telephone Hematology/Oncology Treatment, [place] [address] [place] [address] Janee Leos CRNP [address] [place] [address] Other (InFed) Allergies No known active allergiesdocumented [...] money to get more. Never true 06/04/2024 [place] Depression Scale Answer Date Recorded [place] Depression Scale Total 2 04/19/2024 The thought [...] encounter Miscellaneous Notes * Telephone Encounter - Minh Flores OSA - 08/24/2024 8:35 AM EST Patient scheduled and aware * Telephone Encounter - Liz Medina RN - 08/23/2024 4:15 PM EST [place] is signed. Scheduling: please call patient to schedule 3 hour appt "infed" (Janee Leos). Thanks! * Telephone Encounter - Leydi Mohr LPN - 08/23/2024 11:22 AM EST Order received for InFed [place] plan built and routed to provider No prior authorization required Awaiting provider signature before scheduling patient. documented in this encounter Plan of Treatment Upcoming Encounters Date Type Department Care Team (Late st Contact Info) Description 09/01/2024 7:45 AM EDT Office Visit Gynecology/Obstetrics [facility] [address] [place] [address] Caron Mohr PA-C [address] [place] [address] 09/03/2024 9:30 AM EDT Hem/Onc Treatment Hematology/Oncology Treatment, [place] [address] [place] [address] 09/03/2024 10:00 AM EDT Pharmacy Pharmacy, [place] [address] [place] [address] Clinic, [place] [address] [place] [address] Health Maintenance Due Date Last Done Comments [...] filedocumented as of this encounter Care Teams Hereditary Cancer Program Coordinator Relationship Specialty Start Date End Date Von Lim MD [address] [place] [address] PCP - General Family Medicine 11/14/20 documented as of this encounter
--- OUTSIDE RECORDS SUMMARY | 2024-09-28 14:40 | External Medical Summary | Summary of Care ---
Author Name Unknown Organization [facility] Address [address] [facility] [place] [address] Phone [phone] Care Team Providers Care Kettle Operator Head Name Role Phone Von Lim MD Primary Care Provider +1 [phone] Encounter Details Date Type Department Care Team (Late st Contact Info) Description 08/20/2024 Orders Only Gynecology/Obstetrics [facility] [address] [place] [address] Janee Leos CRNP [address] [place] [address] Iron deficiency anemia, unspecified iron deficiency anemia type* Allergies No known active allergiesdocumented as of this encounter (statuses as of 08/20/2024) Medications Loratadine 10 MG Oral Capsule Take [...] as of this encounter (statuses as of 08/20/2024) Active Problems Problem Noted Date Diagnosed Date [...] as of this encounter (statuses as of 08/20/2024) Resolved Problems Problem Noted Date Diagnosed Date Resolved Date NO KNOWN PROBLEMS 10/31/2008 05/28/2021 documented as of this encounter (statuses as of 08/20/2024) Immunizations Name Administration Dates Next Due H1N1 [...] money to get more. Never true 06/04/2024 [place] Depression Scale Answer Date Recorded [place] Depression Scale Total 2 04/19/2024 The thought [...] 09/01/2024 7:45 AM EDT Office [facility] [address] [place] [address] Caron Mohr PA-C [address] [place] [address] 09/03/2024 10:00 AM EDT Pharmacy Pharmacy, [address] [address] Clinic, [place] [address] [place] [address] Health Maintenance Due Date Last Done Comments [...] anemia, unspecified iron deficiency anemia type- Primary documented in this encounter Care Teams Kettle Operator Head Relationship Specialty Start Date End Date Von Lim MD [address] [place] [address] PCP - General Family Medicine 11/14/20 documented as of this encounter
--- OUTSIDE RECORDS SUMMARY | 2024-09-28 14:40 | External Medical Summary | Summary of Care ---
Author Name Unknown Organization [facility] Address [address] [place] [address] Phone [phone] Care Team Providers Care Compound Finisher Name Role Phone Von Lim MD Primary Care Provider +1 -[phone] Reason for Visit * Reason Comments Anemia Follow-Up * Evaluate & Treat - Unlimited Visits (Within 10 days (routine)) - Authorized Specialty Diagnoses / Procedures Referred By Contac t Referred To Contact Pharmacist / Pharmacy Diagnoses RACHELLE (iron deficiency anemia) Janee Leos CRNP [address] [place] [address] Phone: tel: fax: Referral ID Status Reason Start Date Expiration Date Visits Requested Visits Authorized [id number] Authorized Specialty Services Required 08/05/2024 02/01/2025 99 99 Encounter Details Date Type Department Care Team (Late st Contact Info) Description 08/19/2024 4:00 PM [facility] Pharmacy Pharmacy, [place] [address] [place], [place] [phone] Clinic, [place] [address] [place] [address] Iron deficiency anemia, unspecified iron deficiency anemia [...] money to get more. Never true 06/04/2024 [place] Depression Scale Answer Date Recorded [place] Depression Scale Total 2 04/19/2024 The thought [...] as of this encounter Progress Notes * José Smalls, [facility] - 08/20/2024 3:59 PM EST Patient Phone Numbers Patient referred by PEREZ Nicole (OB) for evaluation of anemia by the Anemia Clinic. Called patient to introduce role/clinic and to review labs from 08/04/24. Hgb: 10.9 g/dL TSAT: 17 % Ferritin: 88 ng/mL B12: 442 pg/mL FA: >20 ng/mL GA: 30w4d Estimated Date of Delivery: 10/25/24 Hgb is below target range for the 3rd trimester. Iron studies below. B12 level within. FA level within. Patient reports feeling well and otherwise denies signs/symptoms of anemia. Oral iron replenishment inadequate or contraindicated. Patient qualifies for IV iron repletion. Plan: Iron dextran (INFeD) 1000 mg IV x 1 dose @ [facility]. Orders placed and routed to appropriate parties. Patient agreeable to intervention. Follow-up labs to be scheduled ~4-6 weeks after iron repletion completed if appropriate prior to delivery. Anemia Clinic will continue to follow. Thank you for allowing us to participate in the care of thispatient. José Smalls, PharmD Clinical Pharmacist [facility] Anemia [facility] (P: [phone]) 08/20/2024 3:59 PM documented in this encounter Plan of Treatment Upcoming Encounters Date Type Department Care Team (Late st Contact Info) Description 09/01/2024 7:45 AM EDT Office Visit Gynecology/Obstetrics [facility] [address] [place] [address] Caron Mohr PA-C [address] [place] [address] 09/03/2024 10:00 AM EDT Pharmacy Pharmacy, [address] [phone] Clinic, Anemia [facility] [address] Scheduled Referrals Name Type Priority Associated Diagnoses [...] Primary documented in this encounter Care Teams Compound Finisher Relationship Specialty Start Date End Date Von Lim MD [address] [place] [address] PCP - General Family Medicine 11/14/20 documented as of this encounter
--- OUTSIDE RECORDS SUMMARY | 2024-09-28 14:40 | External Medical Summary | Summary of Care ---
Author Name Unknown Organization [facility] Address [address] [facility] [place] [address] Phone [phone] Care Team Providers Care Head Animal Keeper Name Role Phone Von Lim MD Primary Care Provider [phone] Reason for Visit * Reason Comments Outpatient Testing Encounter Details Date Type Department Care Team (Late st Contact Info) Description 08/04/2024 7:50 AM EST Laboratory Laboratory, [facility] [address] [facility] [place] [address] [facility] [id number] Antepartum multigravida of advanced maternal age Allergies No known active allergiesdocumented as of this encounter (statuses as of 08/04/2024) Medications Loratadine 10 MG Oral Capsule Take [...] as of this encounter (statuses as of 08/04/2024) Active Problems Problem Noted Date Diagnosed Date Abnormal glucose tolerance in mother complicatin g [...] as of this encounter (statuses as of 08/04/2024) Resolved Problems Problem Noted Date Diagnosed Date Resolved Date NO KNOWN PROBLEMS 10/31/2008 05/28/2021 documented as of this encounter (statuses as of 08/04/2024) Immunizations Name Administration Dates Next Due H1N1 [...] money to get more. Never true 06/04/2024 [place] Depression Scale Answer Date Recorded [place] Depression Scale Total 2 04/19/2024 The thought [...] 08/18/2024 8:00 AM EST Office [facility] [address] [place] [address] Janee Leos CRNP [address] [place] [address] Pending Results Name Type Priority Associated Diagnoses Date /Time SYPHILIS ANTIBODY SCREEN WITH REFLEX TO RPR Lab Routine Antepartum multigravida of advanced maternal age 0208/04/2024 7:48 AM EST SYPHILIS ANTIBODY SCREEN Lab Routine Antepartum multigravida of advanced maternal age 0208/04/2024 7:48 AM EST FERRITIN Lab Routine Antepartum multigravida of advanced maternal age 0208/04/2024 7:48 AM EST TSH Lab Routine Antepartum multigravida of advanced maternal age 0208/04/2024 7:48 AM EST FOLIC ACID Lab Routine Antepartum multigravida of advanced maternal age 0208/04/2024 7:48 AM EST VITAMIN B12 Lab Routine Antepartum multigravida of advanced maternal age 0208/04/2024 7:48 AM EST Health Maintenance Due Date Last Done Comments [...] Not on filedocumented as of this encounter Procedures Procedure Name Priority Date/Time Associated Diagnosis Comments 100-G GESTATIONAL GLUCOSE, 3 HOUR Routine 08/04/2024 10:56 AM EST Antepartum multigravida of advanced maternal age 100-G GESTATIONAL GLUCOSE, 2 HOUR Routine 08/04/2024 9:58 AM EST Antepartum multigravida of advanced maternal age 100-G GESTATIONAL GLUCOSE, 1 HOUR Routine 08/04/2024 8:55 AM EST Antepartum multigravida of advanced maternal age ANEMIA REFLEX CHEMISTRY HOLD Routine 08/04/2024 7:48 AM EST Antepartum multigravida of advanced maternal age GESTATIONAL GLUCOSE TOLERANCE, 3 HOUR Routine 08/04/2024 7:48 AM EST Antepartum multigravida of advanced maternal age ANEMIA CBC Routine 08/04/2024 7:48 AM EST Antepartum multigravida of advanced maternal age DIFFERENTIAL, AUTOMATED Routine 08/04/2024 7:48 AM EST Antepartum multigravida of advanced maternal age DIFFERENTIAL, AUTOMATED Routine 08/04/2024 7:48 AM EST Antepartum multigravida of advanced maternal age RETICULOCYTE PANEL Routine 08/04/2024 7: 48 AM EST Antepartum multigravida of advanced maternal age 100-G GESTATIONAL GLUCOSE, FASTING Routine 08/04/2024 7:48 AM EST Antepartum multigravida of advanced maternal age IRON SCREEN, INCLUDING TIBC Routine 08/04/2024 7:48 AM EST Antepartum multigravida of advanced maternal age CREATININE Routine 08/04/2024 7:48 AM EST Antepartum multigravida of advanced maternal age documented in this encounter Results * 100-G GESTATIONAL GLUCOSE, 3 HOUR (08/04/2024 10:56 AM EST) 100-g Gestational Glucose, 3 Hour 104 70 - 139 mg/dL 08/04/2024 1:09 PM EST [facility] [place] [facility]10 Blood Venous blood specimen / Unknown Venipuncture / Unknown 08/04/2024 10:56 AM EST 08/04/2024 10:56 AM EST Janee TODD LAB BLOOD ORDERABLES Final Re sult [facility] [place] [address] [place] [address] * 100-G GESTATIONAL GLUCOSE, 2 HOUR (08/04/2024 9:58 AM EST) 100-g Gestational Glucose, 2 Hour 144 70 - 154 mg/dL 08/04/2024 10:57 AM EST [facility] Blood Venous blood specimen / Unknown Venipuncture / Unknown 08/04/2024 9:58 AM EST 08/04/2024 9:58 AM EST Janee Leos [employer] LAB BLOOD ORDERABLES Final Re sult Performing Organization Address City/[facility]/ZIP Co de Phone Number [facility] [place] [id number] [address] [place] [address] * 100-G GESTATIONAL GLUCOSE, 1 HOUR (08/04/2024 8:55 AM EST) 100-g Gestational Glucose, 1 Hour 145 70 - 179 mg/dL 08/04/2024 10:22 AM EST [facility] [place] 57[facility]10 Blood Venous blood specimen / Unknown Venipuncture / Unknown 08/04/2024 8:55 AM EST 08/04/2024 8:55 AM EST Janee Leos [employer] LAB BLOOD ORDERABLES Final Re sult Performing Organization Address [facility] de Phone Number [facility] [place] [id number] [place] [address] * CREATININE (08/04/2024 7:48 AM EST) CREATININE 0.6 0.5 - 1.0 mg/dL 08/04/2024 4:37 PM EST LAB[facility]ATORY [facility] EGFR >90 >=60 mL/min 08/04/2024 4:37 PM EST [facility] Comment:eGFR is calculated b ased on the CKD-EPI 2020 equation. Blood Venous blood specimen / Unknown Venipuncture / Unknown 08/04/2024 7:48 AM EST 08/04/2024 7:48 AM EST Janee Leos [employer] LAB BLOOD ORDERABLES Final Re sult Performing Organization Address City/[facility]/ZIP Co de Phone Number [facility] [address] [place] [address] * (ABNORMAL) IRON SCREEN, INCLUDING TIBC (08/04/2024 7:48 AM EST) Iron 85 33 - 151 ug/dL 08/04/2024 4:37 PM EST [facility] Iron Binding Capacity 499(H) 250 - 425 ug/dL 08/04/2024 4:37 PM EST [facility] Transferrin Saturation Percent 17 15 - 55 % 08/04/2024 4:37 PM EST [facility] Blood Venous blood specimen / Unknown Venipuncture / Unknown 08/04/2024 7:48 AM EST 08/04/2024 7:48 AM EST Janee Leos [employer] LAB BLOOD ORDERABLES Final Re sult [facility] [address] [place] [address] * (ABNORMAL) RETICULOCYTE PANEL (08/04/2024 7:48 AM EST) [facility] Reticulocyte Percent 2.77(H) 0.80 - 1.90 % 08/04/2024 3:48 PM EST [facility] Absolute Reticulocyte 98.6 31.3 - 100.1 K/uL 08/04/2024 3:48 PM EST [facility] Immature Reticuloctye Fraction 26.9(H) 2.5 - 20.6 % 08/04/2024 3:48 PM EST [facility] Reticulocyte Hemoglobin 33.3 29.7 - 37.4 pg 08/04/2024 3:48 PM EST [facility] Blood Venous blood specimen / Unknown Venipuncture / Unknown 08/04/2024 7:48 AM EST 08/04/2024 7:48 AM EST Janee Leos [employer] LAB BLOOD ORDERABLES Final Re sult [facility] [address] [place] [address] * 100-G GESTATIONAL GLUCOSE, FASTING (08/04/2024 7:48 AM EST) 100-g Gestational Glucose, Fasting 92 70 - 94 mg/dL 08/04/2024 9:26 AM EST [facility] [place] [facility]10 Blood Venous blood specimen / Unknown Venipuncture / Unknown 08/04/2024 7:48 AM EST 08/04/2024 7:48 AM EST Narrative [facility] [place] [facility]-10 - 08/04/2024 9:26 AM EST Based on ACOG guideline, gestational diabetes mellitus is diagnosed when any of the following is met: Fasting is greater than or equal to 95 mg/dL 1 hour is greater than or equal to 180 mg/dL 2 hour is greater than or equal to 155 mg/dL 3 hour is greater than or equal to 140 mg/dL Janee Leos [employer] DES[employer] LAB BLOOD ORDERABLES Final Re sult [facility] [place] [facility]10 [address] [place] [address] * ANEMIA REFLEX CHEMISTRY HOLD (08/04/2024 7:48 AM EST) Blood Venous blood specimen / Unknown Venipuncture / Unknown 08/04/2024 7:48 AM EST 08/04/2024 7:48 AM EST Janee TODD LAB BLOOD ORDERABLES Final Re sult [facility] [address] [place] [address] * DIFFERENTIAL, AUTOMATED (08/04/2024 7:48 AM EST) WBC 10.78 4.00 - 10.80 K/uL 08/04/2024 8:07 AM EST [facility] [place] [facility]10 Neutrophils % 66.3 40.0 - 75.0 % 08/04/2024 8:07 AM EST [facility] [place] 57[facility]10 Lymphocytes % 25.4 18.0 - 42.0 % 08/04/2024 8:07 AM EST [facility] [place] 57[facility]10 Monocytes % 6.9 1.0 - 11.0 % 08/04/2024 8:07 AM EST [facility] [place] 57[facility]10 Eosinophils % 1.2 0.0 - 6.0 % 08/04/2024 8:07 AM EST [facility] [place] 57[facility]10 Basophils % 0.2 0.0 - 2.0 % 08/04/2024 8:07 AM EST [facility] [place] 57-10 Absolute Neutrophils 7.15 1.80 - 7.70 K/uL 08/04/2024 8:07 AM EST [facility] [place] 57-10 Absolute Lymphocytes 2.74 1.00 - 4.80 K/ul 08/04/2024 8:07 AM EST [facility] [place] 57[facility]10 Absolute Monocytes 0.74 0.00 - 1.10 K/uL 08/04/2024 8:07 AM EST [facility] [place] 57[facility]10 Absolute Eosinophils 0.13 0.00 - 0.70 K/uL 08/04/2024 8:07 AM EST [facility] [place] 57[facility]10 Absolute Basophils 0.02 0.00 - 0.20 K/uL 08/04/2024 8:07 AM EST [facility] [place] 57[facility]10 Blood Venous blood specimen / Unknown Venipuncture / Unknown 08/04/2024 7:48 AM EST 08/04/2024 7:48 AM EST us Janee FAIRNP LAB BLOOD ORDERABLES Final Re sult [place] [address] [address] [place] [address] * (ABNORMAL) ANEMIA CBC (08/04/2024 7:48 AM EST) WBC 10.78 4.00 - 10.80 K/uL 08/04/2024 8:07 AM EST [facility] [place] 57[facility]10 RBC 3.55 3.85 - 5.15 M/uL 08/04/2024 8:07 AM EST [facility] [place] 57[facility]10 HGB 10.9(L) 12.0 - 15.3 g/dL 08/04/2024 8:07 AM EST [facility] [place] 57-10 Comment: Anemia reflex testing triggers on a HGB < 12.0 for Females and HGB < 13.0 for Males in accordance with the WHO Anemia Guidelines Anemia reflex testing triggers on a HGB < 12.0 for Females and HGB < 13.0 for Males in accordance with the WHO Anemia Guidelines HCT 33.1(L) 36.0 - 45.2 % 08/04/2024 8:07 AM EST [facility] [place] [facility]10 MCV 93.2 81.5 - 97.5 fL 08/04/2024 8:07 AM EST [facility] [place] [facility]10 MCH 30.7 27.0 - 34.0 pg 08/04/2024 8:07 AM EST [facility] [place] [facility]10 MCHC 32.9 32.0 - 36.0 g/dL 08/04/2024 8:07 AM EST [facility] [place] [facility]10 RDW 13.5 11.5 - 15.5 % 08/04/2024 8:07 AM EST [facility] [place] [facility]10 PLT 295 140 - 400 K/uL 08/04/2024 8:07 AM EST [facility] [place] [facility]10 MPV 10.5 6.6 - 11.1 fL 08/04/2024 8:07 AM EST LAB[facility]ORY [facility]10 Blood Venous blood specimen / Unknown Venipuncture / Unknown 08/04/2024 7:48 AM EST 08/04/2024 7:48 AM EST Janee Leos [employer] IN[employer] DES[employer]ER LAB BLOOD ORDERABLES Final Re sult [facility] [place] [address] documented in this encounter Visit Diagnoses Diagnosis Antepartum multigravida of advanced maternal age documented in this encounter Care Teams Head Animal Keeper Relationship Specialty Start Date End Date Von Lim MD [address] [place] [address] PCP - General Family Medicine 11/14/20 documented as of this encounter
--- OUTSIDE RECORDS SUMMARY | 2024-09-28 14:40 | External Medical Summary | Summary of Care ---
Author Name Unknown Organization [facility] Address [address] [facility] [place] [address] Phone [phone] Care Team Providers Care Handhole Machine Operator Name Role Phone Von Lim MD Primary Care Provider [phone] Reason for Visit * Reason Comments Medication Administration Infed Encounter Details Date Type Department Care Team (Latest Contact Info) Description 09/03/2024 9:30 AM EDT Hem/Onc Treatment Hematology/Oncology Treatment, [place] [address] [place] [address] Iron deficiency anemia, unspecified iron deficiency anemia type* Allergies No known active allergiesdocumented as of this encounter (statuses as of 09/03/2024) Medications Loratadine 10 MG Oral Capsule Take [...] as of this encounter (statuses as of 09/03/2024) Active Problems Problem Noted Date Diagnosed Date [...] as of this encounter (statuses as of 09/03/2024) Resolved Problems Problem Noted Date Diagnosed Date Resolved Date NO KNOWN PROBLEMS 10/31/2008 05/28/2021 documented as of this encounter (statuses as of 09/03/2024) Immunizations Name Administration Dates Next Due H1N1 [...] money to get more. 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 Patient tolerated well. No complaints. IV site removed and dry dressing applied. Goals: Patient will remain free from injury. Possible barriers to meeting goals: ambulating with IV pole Stability of the patient: Moderately stable - low risk of patient condition declining or worsening Summary regarding today's goals: Met: Patient remained free from harm/injury during treatment. Patient left facility in stable condition. * Maureen Olmedo RN - 09/03/2024 9:37 AM EDT Chair 5, patient here for Infed. Patient with no complaints. Oriented to room and procedure. IV started without difficulty, patient tolerated well. Safety and Risk for Injury Patient will remain free from injury. Ensure appropriate safety devices are available. Provide and maintain safe environment. Patient instructed on use of heat and massage functions where applicable. Patient shown how to operate the heat function of the chair and to alert nursing staff if the chair feels too warm. Patient instructed on the risk of potential fletcher while using the heat function. documented in this encounter Plan of Treatment Upcoming Encounters Date Type Department Care Team (Late st Contact Info) Description 09/13/2024 2:30 PM EDT Pharmacy Pharmacy, [place] [address] [facility] [place] [address] Clinic, Anemia [address] [facility] [place] [address] 09/15/2024 7:45 AM EDT Office [facility] [address] [place] [address] Caron Mohr PA-C [address] [place] [address] Scheduled Orders Name Type Priority Associated Diagnoses Orde r Schedule IRON SCREEN, INCLUDING TIBC Lab STAT Iron deficiency anemia, unspecified iron deficiency anemia type Expected: 09/03/2024 (Approximate), Expires: 03/02/2025 CBC WITH WBC DIFFERENTIAL Lab STAT Iron deficiency anemia, unspecified iron deficiency anemia type Expected: 09/03/2024 (Approximate), Expires: 03/02/2025 FERRITIN Lab STAT Iron deficiency anemia, unspecified iron deficiency anemia type Expected: 09/03/2024 (Approximate), Expires: 09/03/2025 Health Maintenance Due Date Last Done Comments [...] anemia type- Primary documented in this encounter Administered Medications Active Administered Medications - up to 3 most recent administrations Medication Order MAR Action Action Date Dose Rate Site EPINEPHrine 1 MG/ML inj 0.3 mg 0.3 mg, Intramuscular, ONCE PRN Other, Hypersensitivity Reaction or Anaphylaxis, Starting on Fri09/03/24 at 0936, Until 09/04/24 at 0935, For 24 hoursIndications:Iron deficiency anemia, unspecified iron deficiency anemia type Famotidine (Pepcid) inj 20 mg 20 mg, IV Push, ONCE PRN Other, Hypersensitivity Reaction, Starting on Fri09/03/24 at 0936, Until 09/04/24 at 0935, For 24 hours, Give IV push over 2 minutes.Indications:Iron deficiency anemia, unspecified iron deficiency anemia type hEParin 100 UNIT/ML Lock Flush inj 500 Units 500 Units (5 mL), IV Lock, PRN Other, IV Flush, Starting on Fri09/03/24 at 0936, Until 09/04/24 at 0935, For 24 hours, Do not flush if lock, PICC, or central line not in place; IV infusing or unable to flush.Indications:Iron deficiency anemia, unspecified iron deficiency anemia type Hydrocortisone Sod Suc (PF) (Solu-Cortef) inj 100 mg 100 mg, IV Push, ONCE PRN Other, Hypersensitivity Reaction, Starting on Fri09/03/24 at 0936, Until 09/04/24 at 0935, For 24 hoursIndications:Iron deficiency anemia, unspecified iron deficiency anemia type NSS infusion Intravenous, at 50 mL/hr, PRN, Starting on Fri09/03/24 at 1045, Until Discontinued, Maintenance lineIndications:Iron deficiency anemia, unspecified iron deficiency anemia type Start Infusion 09/03/2024 9:47 AM EDT 50 mL/hr oxygen GAS Inhalation, OXYGEN, First dose on Fri09/03/24 at 1015, Until Discontinued, Device/Managed by: Low Flow Device, Goal SPO2 (%): 91-95, Starting Device: Nasal Cannula, Initial Flow Rate (LPM): 2, Lowest Support: Nasal Cannula: Flow 0-6 LPM. Titrate up/down by 1 LPM., Higher Support: Non-Rebreather (NRB) Mask: Minimum of 10 LPM. Titrate to maintain bag inflation., Titration Interval: Q2 minutes and as needed., Notify Provider: For sudden DECREASE in resting SPO2 to less than 85% and when escalating delivery device., Wean patient off Oxygen when the oxygen saturation is greater than or equal to 93%Indications:Iron deficiency anemia, unspecified iron deficiency anemia type sodium chloride 0.9 % flush central line 10 mL 10 mL, IV Push, PRN Other, IV Flush, Starting on Fri09/03/24 at 0936, Until 09/04/24 at 0935, For 24 hours, Do not flush if lock, PICC, or central line not in place; IV infusing or unable to flush.Indications:Iron deficiency anemia, unspecified iron deficiency anemia type Inactive Administered Medications - up to 3 most recent administrations Medication Order MAR Action Action Date Dose Rate Site Iron Dextran (INFeD) 975 mg in NSS 250 mL INFUSION 975 mg, IV Piggyback, ONCE, 1 dose, On Fri09/03/24 at 1100, Administer over 1 Hours, - Administer iron dextran infusion bag over 1 hour - Monitor for infusion reactions with vitals at 30 minutes and 60 minutes after starting the infusion. - If patient develops sign/symptoms of reaction or vital signs outside normal limits: 1) STOP infusion 2) CONTACT physicianIndications:Iron deficiency anemia, unspecified iron deficiency anemia type Start Infusion 09/03/2024 10:07 AM EDT 975 mg 274.5 mL/hr Iron Dextran (Infed) IV Push TEST DOSE 25 mg IV Push, Administer over 0.5 Minutes, -Educate patient on signs/symptoms of infusion reaction -Administer 25 mg test dose of iron dextran before infusion bag -Observe patient for signs/symptoms of reaction with vital signs before test dose, then at 15 minutes after administering the test dose -If patient tolerates test dose with no reaction, proceed with iron dextran infusion -HOLD infusion and contact physician immediately if patient reacts to test dose, ONCE, 1 dose, On Fri09/03/24 at 1045Indications:Iron deficiency anemia, unspecified iron deficiency anemia type Given 09/03/2024 9:48 AM EDT 25 mg documented in this encounter Care Teams Handhole Machine Operator Relationship Specialty Start Date End Date Von Lim MD [address] [place] [address] PCP - General Family Medicine 11/14/20 documented as of this encounter
--- OUTSIDE RECORDS SUMMARY | 2024-09-28 14:40 | External Medical Summary | Summary of Care ---
Author Name Unknown Organization [facility] Address [address] [facility] [place] [address] Phone [phone] Care Team Providers Care Liberal Arts Dean Name Role Phone Von [place] MD Primary Care Provider [phone] Reason for Visit * Reason Comments Return Visit Encounter Details Date Type Department Care Team (Late st Contact Info) Description 09/01/2024 7:45 AM EDT Office Visit Gynecology/Obstetric s [facility] [address] [place] [address] Caron Mohr PA-C [address] [place] [address] High-risk in third trimester*; Antepartum multigravida of advanced maternal age; Obesity in , antepartum; Abnormal glucose tolerance in mother complicating ; Antepartum anemia complicating Allergies No known active allergiesdocumented as of this encounter (statuses as of 09/01/2024) Medications Loratadine 10 MG Oral Capsule Take 1 Capsule by mouth in the morning. Active 28-0.8 MG Oral Tablet Take by mouth. Active Aspirin 81 MG Oral Tablet Chewable Take 1 Tablet by mouth in the morning. 4 Active Omeprazole 20 MG Oral Capsule Delayed Release (PriLOSEC) Take 1 Capsule by mouth in the morning. 30 Capsule 3 5 Active Omeprazole 20 MG Oral Capsule Delayed Release (PriLOSEC) Take 1 Capsule by mouth in the morning. 09/02/19 25 Discontinu ed(Refill) documented as of this encounter (statuses as of 09/01/2024) Active Problems Problem Noted Date Diagnosed Date [...] as of this encounter (statuses as of 09/01/2024) Resolved Problems Problem Noted Date Diagnosed Date Resolved Date NO KNOWN PROBLEMS 10/31/2008 05/28/2021 documented as of this encounter (statuses as of 09/01/2024) Immunizations Name Administration Dates Next Due H1N1 [...] money to get more. Never true 06/04/2024 [place] Depression Scale Answer Date Recorded [place] Depression Scale Total 2 04/19/2024 The thought [...] Start Date Job End Date [employer] Not on file Not on file Not on fi le documented as of this encounter Last Filed Vital Signs Vital Sign Reading Time Taken Comments Blood Pressure 132/80 09/01/2024 7:33 AM EDT Pulse - - Temperature - - Respiratory Rate - - Oxygen Saturation - - Inhaled Oxygen Concentration - - Weight 94.3 kg (208 lb) 09/01/2024 7:33 AM EDT Height - - Body Mass Index 39.33 06/04/2024 7:47 AM EST documented in this encounter Progress Notes * Caron Mohr PA-C - 09/01/2024 7:47 AM EDT 32w2d BLE edema has had for several weeks. Wearing compression stockings. Trying to prop her feet up. Better overnight, worse in morning and throughout day. Denies CP, SOB. Plans to start IV iron, just got call from anemia clinic Denies VB, LOF, contractions. Pos fm. FHT 160-170s, baby moving. NST completed to further evaluate ASSESSMENT assessment with Non-stress Test completed on 09/01/2024 at 32.2 weeks gestation for indicationof concerns for tachycardia heart baseline: 150 bpm Variability: Moderate Decelerations: absent Accelerations: present Contractions: None NST start time: 06:46 NST stop time: 07:25 Time not adjusted for DLS NST strip reviewed, interpreted, and approved by OB provider, Caron Mohr PA-C. NST strip stored in clinic storage file RTC in 2 weeks * Quyen Hamilton LPN - 09/01/2024 7:33 AM EDT 32w2d Starting iv iron this Friday Would like script for prilosec LE swelling, wearing compression stockings, elevated documented in this encounter Plan of Treatment Upcoming Encounters Date Type Department Care Team (Late st Contact Info) Description 09/03/2024 9:30 AM EDT Hem/Onc Treatment Hematology/Oncology Treatment, [place] [address] [place] [address] 09/13/2024 2:30 PM EDT Pharmacy Pharmacy, [place] [address] [place] [address] Clinic, Anemia [address] [place] [address] 09/15/2024 7:45 AM EDT Office Visit [facility]necology[facility] [address] [place] [address] Caron Mohr PA-C [address] [place] [address] Health Maintenance Due Date Last Done Comments [...] antepartum documented in this encounter Care Teams Liberal Arts Dean Relationship Specialty Start Date End Date Von Lim MD [address] [place] [address] PCP - General Family Medicine 11/14/20 documented as of this encounter
--- OUTSIDE RECORDS SUMMARY | 2024-09-28 14:40 | External Medical Summary | Summary of Care ---
Author Name Unknown Organization [facility] Address [address] [facility] [place] [address] Phone [phone] Care Team Providers Care Marketing Professional Name Role Phone Von Lim MD Primary Care Provider [phone] [phone] Reason for Visit * Reason Comments Blood Management Program Encounter Details Date Type Department Care Team (Late st Contact Info) Description 08/05/2024 Documentation Patient Blood Management, [place] [address] [facility] [place] [address] Lisandro Mckenna RN Allergies No known active allergiesdocumented as of [...] money to get more. Never true 06/04/2024 [place] Depression Scale Answer Date Recorded [place] Depression Scale Total 2 04/19/2024 The thought [...] as of this encounter Progress Notes * Lisandro Mckenna RN - 08/05/2024 2:54 PM EST REFERRAL - Patient Blood Management Name: Michell Abreu REQUESTING SERVICE: Kayley Chadwick OB REASON FOR REFERRAL: new evaluation outpatient, anemia in [place]: 10/25/24 Anemia Evaluation: Latest Reference Range & Units 08/04/24 07:48 HGB 12.0 - 15.3 g/dL 10.9 (L) HCT 36.0 - 45.2 % 33.1 (L) Iron 33 - 151 ug/dL 85 Iron Binding Capacity 250 - 425 ug/dL 499 (H) Transferrin Saturation Percent 15 - 55 % 17 Ferritin 13 - 150 ng/mL 88 Vitamin B12 232 - 1,245 pg/mL 442 Folic Acid >4.5 ng/mL >20.0 Immature Reticuloctye Fraction 2.5 - 20.6 % 26.9 (H) Reticulocyte Hemoglobin 29.7 - 37.4 pg 33.3 (L): Data is abnormally low (H): Data is abnormally high Current Patient Medications: Medications that may impair hemostasis: bASA Medications that may impair iron absorption: omeprazole Patient Refused Blood Transfusion? (e.g. Uatsdin): no Possible Contributing Factors: iron deficiency Treatment Recommendations: IV iron per OB MTM guidelines. Spoke with Michell on the phone. Risks and benefits of IV iron, including risk of adverse drug reaction discussed with patient. Patient voiced understanding. Patient agreeable to infusion at [facility]. Thank you for allowing Blood Management to participate in the care of this patient. documented in this encounter Plan of Treatment Upcoming Encounters Date Type Department Care Team (Late st Contact Info) Description 08/16/2024 4:00 PM EST Pharmacy Pharmacy, [place] [address] [facility] [place] [id number] Clinic, Anemia [address] [place] [address] 08/18/2024 8:00 AM EST Office Visit Gynecology/Obstetrics Esteban Chadwick [address] [place] [address] Janee Leos CRNP [address] [place] [address] Health Maintenance Due Date Last Done Comments [...] filedocumented as of this encounter Care Teams Marketing Professional Relationship Specialty Start Date End Date Von Lim MD [address] [place] [address] PCP - General Family Medicine 11/14/20 documented as of this encounter
--- OUTSIDE RECORDS SUMMARY | 2024-09-28 14:40 | External Medical Summary | Summary of Care ---
Author Name Unknown Organization [facility] Address [address] [facility] [place] [address] Phone [phone] Care Team Providers Care Staff Home Therapy Rn Name Role Phone Von Lim MD Primary Care Provider +1 [phone] Reason for Visit * Reason Onset Date Comments Other 08/23/2024 InFed Encounter Details Date Type Department Care Team (Late st Contact Info) Description 08/23/2024 Telephone Hematology/Oncology Treatment, [place] [address] [place] [address] Janee Leos CRNP [address] [place] [address] Other (InFed) Allergies No known active allergiesdocumented [...] money to get more. Never true 06/04/2024 [place] Depression Scale Answer Date Recorded [place] Depression Scale Total 2 04/19/2024 The thought [...] encounter Miscellaneous Notes * Telephone Encounter - Leydi Mohr LPN - 08/23/2024 11:22 AM EST Order received for InFed [place] plan built and routed to provider No prior authorization required Awaiting provider signature before scheduling patient. documented in this encounter Plan of Treatment Upcoming Encounters Date Type Department Care Team (Late st Contact Info) Description 09/01/2024 7:45 AM EDT Office Visit Gynecology/Obstetrics [facility] [address] [place] [address] Caron Mohr PA-C [address] [place] [address] 09/03/2024 10:00 AM EDT Pharmacy Pharmacy, [place] [address] [place] [address] [facility], [facility] [address] [place] [address] Health Maintenance Due Date Last Done Comments [...] filedocumented as of this encounter Care Teams Staff Home Therapy Rn Relationship Specialty Start Date End Date Von Lim MD [address] [place] [address] PCP - General Family Medicine 11/14/20 documented as of this encounter
--- OUTSIDE RECORDS SUMMARY | 2024-09-28 14:40 | External Medical Summary | Summary of Care ---
Author Name Unknown Organization [facility] Address [address] [facility] [place] [address] Phone [phone] Care Team Providers Care Reed Dipper Name Role Phone Von Lim MD Primary Care Provider +1 [phone] Reason for Visit * Reason Comments Return Visit Encounter Details Date Type Department Care Team (Late st Contact Info) Description 08/18/2024 8:00 AM EST Office Visit Gynecology/Obstetric s Esteban Chadwick [address] [place] [address] Janee Leos CRNP [address] [place] [address] Multigravida of advanced maternal age in third trimester*; High-risk in third trimester; Obesity in , antepartum; Abnormal glucose tolerance in mother complicating ; Antepartum anemia complicating Allergies No known active allergiesdocumented as of this encounter (statuses as of 08/18/2024) Medications Loratadine 10 MG Oral Capsule Take [...] as of this encounter (statuses as of 08/18/2024) Active Problems Problem Noted Date Diagnosed Date [...] as of this encounter (statuses as of 08/18/2024) Resolved Problems Problem Noted Date Diagnosed Date Resolved Date NO KNOWN PROBLEMS 10/31/2008 05/28/2021 documented as of this encounter (statuses as of 08/18/2024) Immunizations Name Administration Dates Next Due H1N1 [...] money to get more. Never true 06/04/2024 [place] Depression Scale Answer Date Recorded [place] Depression Scale Total 2 04/19/2024 The thought [...] Start Date Job End Date [email or web address] Not on file Not on file Not on fi le documented as of this encounter Last Filed Vital Signs Vital Sign Reading Time Taken Comments Blood Pressure 126/74 08/18/2024 7:57 AM EST Pulse - - Temperature - - Respiratory Rate - - Oxygen Saturation - - Inhaled Oxygen Concentration - - Weight 94.3 kg (208 lb) 08/18/2024 7:57 AM EST Height - - Body Mass Index 39.33 06/04/2024 7:47 AM EST documented in this encounter Progress Notes * Janee Leos CRNP - 08/18/2024 8:10 AM EST 30w2d Heartburn worsening occasionally overnight. Taking omeprazole daily, Tums as needed. Wearing compression stockings most days for good management of swelling. Baby is active. Denies contractions, bleeding, LOF. PEREZ Garcia * Briseida Andre CMA - 08/18/2024 7:57 AM EST 30w2d Denies any concerns documented in this encounter Plan of Treatment Upcoming Encounters Date Type Department Care Team (Late st Contact Info) Description 08/18/2024 4:00 PM EST Pharmacy Pharmacy, [place] [address] [place] [address] [facility], [place] [address] [place] [address] 09/01/2024 7:45 AM EDT Office Visit Gynecology/Obstetrics Esteban Chadwick [address] [place] [address] Caron Mohr PA-C [address] [place] [address] Health Maintenance Due Date Last Done Comments [...] as of this encounter Visit Diagnoses Diagnosis Multigravida of advanced maternal age in third trimester- Primary High-risk in third trimester Obesity in , antepartum Obesity complicating , childbirth, or the puerperium, antepartum condition or complication Abnormal glucose tolerance in mother complicating Abnormal maternal glucose tolerance, complicating , childbirth, or the puerperium, unspecified as to episode of care Antepartum anemia complicating Anemia, antepartum documented in this encounter Care Teams Reed Dipper Relationship Specialty Start Date End Date Von Lim MD [address] [place] [address] PCP - General Family Medicine 11/14/20 documented as of this encounter
--- OUTSIDE RECORDS SUMMARY | 2024-09-28 14:41 | External Medical Summary ---
Author Name Unknown Address Unknown Organization [id number]:LAB[facility]ATORY [facility] [place] [address] - [address] [place] [address] Laboratory Report Ordering Provider Test Date Status ESTEPHANIA REYES 08/04/2024 10:56:12 Final Observation Date Value Abnormality Reference (Units ) Status Glucose [Mass/volume] in Serum or Plasma --3 hours post dose glucose 08/04/2024 10:56:12 104 70-139 (mg/dL) Final Performing Location [facility]ORY [facility] [place] [address] - [address] [place] [address]
--- OUTSIDE RECORDS SUMMARY | 2024-09-28 14:41 | External Medical Summary ---
Author Name Unknown Address Unknown Organization [id number]:LABORATORY [facility] - [address] [place] [address] Laboratory Report Ordering Provider Test Date Status ESTEPHANIA REYES 08/04/2024 07:48:23 Final Observation Date Value Abnormality Reference (Units ) Status Ferritin 08/04/2024 07:48:23 88 13-150 (ng /mL) Final Postmenopausal women have hi gher ferritin levels than pre-menopausal women. The above reference interval is based on pre-menopausal women. Performing Location LABORATORY [facility] - [address] [place] [address]
--- OUTSIDE RECORDS SUMMARY | 2024-09-28 14:41 | External Medical Summary ---
Author Name Unknown Address Unknown Organization [id number]:[facility]ORY [facility] [place] [address] - [address] [place] [address] Laboratory Report Ordering Provider Test Date Status ESTEPHANIA REYES 05/19/2024 10:42:20 Final Observation Date Value Abnormality Reference (Units ) Status Glucose [Mass/volume] in Serum or Plasma --3 hours post dose glucose 05/19/2024 10:42:20 119 70-139 (mg/dL) Final Performing Location LAB[facility]ORY [facility] [place] [address] - [address] [place] [address]
--- OUTSIDE RECORDS SUMMARY | 2024-09-28 14:41 | External Medical Summary | Summary of Care ---
Author Name Unknown Organization [facility] Address [address] [facility] [place] [address] Phone [phone] Care Team Providers Care Emt B Name Role Phone Von Lim MD Primary Care Provider +1 [phone] Reason for Visit * Reason Comments Physical-Exam Pt here for cpe, c/o cough and congestion x 7 days Encounter Details Date Type Department Care Team (Late st Contact Info) Description 06/04/2024 7:40 AM EST Office Visit Family [facility] [address] [facility] [place] [address] Von Lim MD [address] [facility] [place] [address] Routine general medical examination at a health care facility*; High-risk in second trimester Allergies No known active allergiesdocumented as of this encounter (statuses as of 06/04/2024) Medications Loratadine 10 MG Oral Capsule Take 1 Capsule by mouth in the morning. Active 28-0.8 MG Oral Tablet Take by mouth. Active Aspirin 81 MG Oral Tablet Chewable Take 1 Tablet by mouth in the morning. 04/19/2024 Active documented as of this encounter (statuses as of 06/04/2024) Active Problems Problem Noted Date Diagnosed Date [...] as of this encounter (statuses as of 06/04/2024) Resolved Problems Problem Noted Date Diagnosed Date Resolved Date NO KNOWN PROBLEMS 10/31/2008 05/28/2021 documented as of this encounter (statuses as of 06/04/2024) Immunizations Name Administration Dates Next Due H1N1 2008 Influenza, IM 07/28/2009 Seasonal Influenza Vac., MDV , IM, 0.5 mL (Fluzone) 04/25/2017,05/24/2014,07/28/2009 Seasonal Influenza, PF, 6 M & above, IM , (FluLaval or Fluzone) 05/31/2022,05/12/2020 Seasonal Influenza, Quadriva lent, No Preserve, IM 04/20/2016 TDAP (age 10 and older)(Boostrix) 05/31/2022 TDAP, Age 7 and older, IM (Adacel) 02/14,07/28/2009(Deferred: Patient Refused) documented as of this encounter Social History Tobacco Use Types Packs/Day Years Used Date Smoking Tobacco: Never Smokeless Tobacco: Never Alcohol Use Standard Drinks/Week Comments Not Currently 0 (1 standard drink = 0.6 oz pur e alcohol) rarely PHQ-2 Answer Date Recorded PHQ-2 Score 1 06/30/2019 Hunger Vital Sign Answer Date Recorded Within the past 12 months, y ou worried that your food would run out before you got the money to buy more. Never true 01/15/20 24 Within the past 12 months, t he food you bought just didn't last and you didn't have money to get more. Never true 01/15/2024 [place] Depression Scale Answer Date Recorded [place] Depression Scale Total 2 04/19/2024 The thought of harming myself has occurred to me . Never 04/19/2024 Childcare Answer Date Recorded Do you feel overwhelmed with taking care of a child, family member or friend? No 01/15/2024 Does your family need help f inding childcare? (Household - for ages 0-17 years) Not on file 01/15/2024 Clothing Answer Date Recorded Have you been unable to get clothing when it was really needed? No 01/15/2024 Is your family able to get c lothes or diapers when needed? (Household - for ages 0-17 years) Not on file 01/15/2024 Personal Safety Answer Date Recorded Do you feel unsafe or have concerns for your saf ety? No 01/15/2024 Do you have concerns for you r family's safety? (Household - for ages 0-17 years) Not on file 01/15/2024 Utilities Answer Date Recorded Do you have trouble paying y our heating, water, or electric bill? No 01/15/2024 Is your family able to pay t he heat, water, or electric bill? (Household - for ages 0-17 years) Not on file 01/15/2024 Does your family have access to good internet? (Household - for ages 0-17 years) Not on file 01/15/2024 Employment Status Answer Date Recorded Are you unemployed or without regular income? No 01/15/2024 Does the household have a re gular source of income? (Household - for ages 0-17 years) Not on file 01/15/2024 Social Connections Answer Date Recorded How often do you feel lonely or isolated from th ose around you? Rarely 01/15/2024 Financial Resource Strain Answer Date R ecorded Do you have any trouble payi ng for your medications, or do you think you might in the future? No 01/15/2024 Does your family have troubl e paying for medicine? (Household - for ages 0-17 years) Not on file 01/15/2024 Transportation Needs Answer Date Record ed Do you have trouble getting a ride to medical visits or work? (Adult - for ages 18 years and over) Not on file 01/15/2024 Does your family have a hard time getting a ride to doctors visits? (Household - for ages 0-17 years) Not on file 01/15/2024 Has lack of transportation k ept you from medical appointments, meetings, work, or from getting things needed for daily living? Check all that apply. No 01/15/2024 Do you (or your family) have trouble finding or paying for a ride (transportation)? (Household - for ages 0-17 years) Not on file 01/15/2024 Housing Stability Answer Date Recorded Do you currently live in a s helter or have no steady place to sleep at night? No 01/15/2024 Do you think you are at risk of becoming homeless? (Adult - for ages 18 years and over) Not on file 01/15/2024 Does your family worry about paying for your home or becoming homeless? (Household - for ages 0-17 years) Not on file 0 01/15/2024 Are you homeless or worried that you might be in the future? No 01/15/2024 Are you (or your family) ishmael eless or worried that you might be in the future? (Household - for ages 0-17 years) Not on file Food Insecurity Answer Date Recorded Do you need food for this week? No 01/15/2024 Are you able to get enough f ood for your family? (Household - for ages 0-17 years) Not on file 01/15/2024 Does your family need food t his week? (Household - for ages 0-17 years) Not on file 01/15/2024 Do you always have enough fo od for your family? (Household - for ages 0-17 years) Not on file 01/15/2024 Estimated Date of Delivery Comme nts Yes [...] Sign Reading Time Taken Comments Blood Pressure 122/80 06/04/2024 7:47 AM EST Pulse 72 06/04/2024 7:47 AM EST Temperature 37.2 °C (98.9 °F) 06/04/2024 7:47 AM ES T Respiratory Rate 18 06/04/2024 7:47 AM EST Oxygen Saturation - - Inhaled Oxygen Concentration - - Weight 84.8 kg (187 lb) 06/04/2024 7:47 AM EST Height 154.9 cm (5' 0.98") 06/04/2024 7:47 AM ES T Body Mass Index 35.36 06/04/2024 7:47 AM EST documented in this encounter Progress Notes * Von Lim MD - 06/04/2024 8:05 AM EST SUBJECTIVE: Michell Abreu is a 39 year old female. Chief Complaint Patient presents with Physical-Exam Pt here for cpe, c/o cough and congestion x 7 days HPI: Routine visit. 20 weeks . Getting over viral URI. Otherwise going well. Patient Active Problem List Diagnosis OAB (overactive bladder) Obesity, Class I, BMI 30.0-34.9 (see actual BMI) Antepartum multigravida of advanced maternal age High-risk Obesity in , antepartum Abnormal glucose tolerance in mother complicating Current Outpatient Medications Medication Sig Dispense Refill Loratadine 10 MG Oral Capsule Take 1 Capsule by mouth in the morning. 28-0.8 MG Oral Tablet Take by mouth. Aspirin 81 MG Oral Tablet Chewable Take 1 Tablet by mouth in the morning. No current facility-administered medications for this visit. Allergy: Review of patient's allergies indicates: No Known Allergies OBJECTIVE: BP 122/80 | Pulse 72 | Temp 98.9 °F (37.2 °C) | Resp 18 | Ht 5' 0.98" (1.549 m) | Wt 187 lb (84.8kg) | LMP 01/19/2024 (Exact Date) | BMI 35.36 kg/m² | BSA 1.91 m² General: alert, healthy, and no distress Head: Normocephalic, No masses, lesions, tenderness or abnormalities Neck: supple, no adenopathy, no bruits, thyroid normal size, non-tender, without nodularity Lungs: chest symmetric with normal AP diameter, no chest deformities noted, no chest wall tenderness, lungs clear to auscultation Heart: regular rate & rhythm, no murmur, and no gallops Extremities: less than 2 second capillary refill, no joint deformities, effusion, or inflammation Neuro Exam: alert & oriented x 3 with fluent speech, no focal motor/sensory deficits, gait normal, reflexes normal and symmetric ASSESSMENT AND PLAN: (Z00.00) Routine general medical examination at a health care facility (primary encounter diagnosis) Plan: age appropriate anticipatory guidance and health maintenance discussed (O09.92) High-risk in second trimester Plan: continue follow up with OB Follow up as needed. No other complaints were offered at this time. Von Lim MD documented in this encounter Nursing Notes * Beatrice Collins LPN - 06/04/2024 7:47 AM EST The patient has been properly identified by confirmation of name and date of . Chief Complaint Patient presents with Physical-Exam Pt here for cpe, c/o cough and congestion x 7 days documented in this encounter Plan of Treatment Upcoming Encounters Date Type Department Care Team (Late st Contact Info) Description 06/09/2024 8:30 AM EST Imaging Radiology [facility] [address] [place] [address] 06/09/2024 10:30 AM EST Office Visit Gynecology/Obstetrics [facility] [address] [place] [address] Janee Leos CRNP [address] [place] [address] Health Maintenance Due Date Last Done Comments Hepatitis B Vaccine (1 of 3 - 19+ 3-dose series) 2002 COVID-19 Vaccine (2023- season) 2024 Influenza Vaccine (FLU shot) (#1) 2024 05/31/2022, 04/04/2021, 05/12/2020, Additional history exists Mammogram 04/04/2024 04/04/2023 Depression Screening 06/04/2025 06/04/2024, 06/25/19 Pap Smear 12/13/2025 12/13/2022, /02/2020, 12/08/2015, Additional history exists Diabetes Screening 04/19/2027 04/19/2024, 1 08/01/2021, 05/31/2022 Cervical Cancer Screening 12/14/2027 HPV/Co-Test 12/14/2027 12/13/2022 Lipid Panel 06/02/2028 06/02/2023, 07/28/2009 DTap/Tdap Vaccines (3 - Td or Tdap) 05/31/2032 05/31/2022, 02/14/2011 HPV (Gardasil) Vaccine Aged Out No lo nger eligible based on patient's age to complete this topic MENINGOCOCCAL (MENACTRA/MENVEO) Aged Out No longer eligible based on patient's age to complete this topic Pneumococcal Vaccine: Pediatrics (0 to 5 Years) and At-Risk Patients (6 to 64 Years) Aged Out No longer eligible based on patient's age to complete this topic documented as of this encounter Goals Goal Patient Goal Type Associated Problems Recent Progress Patient-Stated? Author Reminders Care Plan OB Reminders No Swap[place]art, Provider documented as of this encounter Medical Devices Not on filedocumented as of this encounter Visit Diagnoses Diagnosis Routine general medical examination at a health care facility- Primary High-risk in second trimester documented in this encounter Additional Health Concerns Active Problems Noted Date Diagnosed Date OB Reminders 04/24/2024 documented as of this encounter Care Teams Emt B Relationship Specialty Start Date End Date Von Lim MD [address] [place] [address] PCP - General Family Medicine 11/14/20 documented as of this encounter
--- OUTSIDE RECORDS SUMMARY | 2024-09-28 14:41 | External Medical Summary ---
Author Name Unknown Address Unknown Organization [id number]:LAB[facility]ORY [facility] [place] [address] - [address] [place] [address] Laboratory Report Ordering Provider Test Date Status ESTEPHANIA REYES 05/19/2024 09:39:56 Final Observation Date Value Abnormality Reference (Units ) Status Glucose, 2-hr post glucose challenge 05/19/2024 09:39:56 111 70-154 (mg/dL) Final Performing Location LAB[facility]ORY [facility] [place] [address] - [address] [place] [address]
--- OUTSIDE RECORDS SUMMARY | 2024-09-28 14:41 | External Medical Summary ---
Author Name Unknown Address Unknown Organization [id number]:LAB[facility]ATORY [facility] [place] [address] - [address] [place] [address] Laboratory Report Ordering Provider Test Date Status ESTEPHANIA REYES 08/04/2024 09:58:45 Final Observation Date Value Abnormality Reference (Units ) Status Glucose, 2-hr post glucose challenge 08/04/2024 09:58:45 144 70-154 (mg/dL) Final Performing Location LAB[facility]ATORY [facility] [place] [address] - [address] [place] [address]
--- OUTSIDE RECORDS SUMMARY | 2024-09-28 14:41 | External Medical Summary ---
Author Name Unknown Address Unknown Organization K0G:LABORATORY [facility] [place] [address] - [address] [place] [address] Laboratory Report Ordering Provider Test Date Status ESTEPHANIA REYES 08/04/2024 07:48:23 Final Observation Date Value Abnormality Reference (Units ) Status WBC, Total 08/04/2024 07:48:23 10.78 4.00-10.8 0 (K/uL) Final RBC 08/04/2024 07:48:23 3.55 3.85-5.15 (M/uL) Final Hemoglobin 08/04/2024 07:48:23 10.9 Below low normal 12 .0-15.3 (g/dL) Final Anemia reflex testing trigge rs on a HGB < 12.0 for Females and HGB < 13.0 for Males in accordance with the WHO Anemia Guidelines
Anemia reflex testing triggers on a HGB < 12.0 for Females and HGB < 13.0 for Males in accordance with the WHO Anemia Guidelines HCT 08/04/2024 07:48:23 33.1 Below low normal 36. 0-45.2 (%) Final MCV 08/04/2024 07:48:23 93.2 81.5-97.5 (fL) Final MCH 08/04/2024 07:48:23 30.7 27.0-34.0 (pg) Final MCHC 08/04/2024 07:48:23 32.9 32.0-36.0 (g/dL) Final RDW 08/04/2024 07:48:23 13.5 11.5-15.5 (%) Final Platelets 08/04/2024 07:48:23 295 140-400 (K /uL) Final MPV 08/04/2024 07:48:23 10.5 6.6-11.1 ( fL) Final Performing Location LABORATORY [facility] [place] [address] - [address] [place] [address]
--- OUTSIDE RECORDS SUMMARY | 2024-09-28 14:41 | External Medical Summary ---
Author Name Unknown Address Unknown Organization K01:LABORATORY [facility] [place] - [address] [place] [address] Laboratory Report Ordering Provider Test Date Status ERICESTEPHANIA 08/04/2024 07:48:23 Final Observation Date Value Abnormality Reference (Units ) Status Iron 08/04/2024 07:48:23 85 33-151 (ug/dL) Final Iron-binding capacity 08/04/2024 07:48:23 499 Above high normal 250-425 (ug/dL) Final Transferrin Sat % 08/04/2024 07:48:23 17 15-55 (%) Final Performing Location LABORATORY [facility] - [address] [place] [address]
--- OUTSIDE RECORDS SUMMARY | 2024-09-28 14:41 | External Medical Summary | Summary of Care ---
Author Name Unknown Organization [facility] Address [address] [facility] [place] [address] Phone [phone] Care Team Providers Care Drying Oven Tender Name Role Phone Von Lim MD Primary Care Provider +1 [phone] Reason for Visit * Reason Comments Return Visit Encounter Details Date Type Department Care Team (Late st Contact Info) Description 08/04/2024 8:00 AM EST Office Visit Gynecology/Obstetric s [facility] [address] [place] [address] Janee Leos CRNP [address] [place] [address] High-risk in third trimester*; Antepartum multigravida of advanced maternal age; Obesity in , antepartum; Abnormal glucose tolerance in mother complicating ; Need for lmngwibnxi-xlavtdw-pu rtussis (Tdap) vaccine Allergies No known active allergiesdocumented as of [...] money to get more. Never true 06/04/2024 [place] Depression Scale Answer Date Recorded [place] Depression Scale Total 2 04/19/2024 The thought [...] Start Date Job End Date [employer] Not on file Not on file Not on fi le documented as of this encounter Last Filed Vital Signs Vital Sign Reading Time Taken Comments Blood Pressure 122/72 08/04/2024 8:01 AM EST Pulse - - Temperature - - Respiratory Rate - - Oxygen Saturation - - Inhaled Oxygen Concentration - - Weight 92.6 kg (204 lb 3.2 oz) 08/04/2024 8:01 A M EST Height - - Body Mass Index 38.61 06/04/2024 7:47 AM EST documented in this encounter Progress Notes * Briseida Andre CMA - 08/04/2024 8:13 AM EST Patient here for TDAP injection. Patient doing well no complaints. Injection given IM as ordered. Patient tolerated well. Patient to follow up as directed. Patient instructed to call if any complications. Patient verbalized understanding of instructions given and her follow up appt for LUIGI Injection site: Left Deltoid Medication Source: Dispensed stock medication * Janee Leos CRNP - 08/04/2024 8:10 AM EST 28w2d No concerns. Baby is active. No contractions or bleeding. Wearing compression stockings for swelling. 3hr GTT and TDAP today. PEREZ Garcia * Briseida Andre CMA - 08/04/2024 8:01 AM EST 28w2d Denies any concerns TDAP today documented in this encounter Plan of Treatment Upcoming Encounters Date Type Department Care Team (Late st Contact Info) Description 08/18/2024 8:00 AM EST Office Visit Gynecology/Obstetrics [facility] [address] [place] [address] Janee Leos CRNP [address] [place] [address] Health Maintenance Due Date Last Done Comments [...] puerperium, unspecified as to episode of care Need for ejtcptagbz-cqgwfnh-ivazfgjvs (Tdap) vaccine Need for prophylactic vaccination with combined dlkxdsnxue-lepjvnc-povrfjjue (DTP) vaccine documented in this encounter Care Teams Drying Oven Tender Relationship Specialty Start Date End Date Von Lim MD [address] [place] [address] PCP - General Family Medicine 11/14/20 documented as of this encounter
--- OUTSIDE RECORDS SUMMARY | 2024-09-28 14:41 | External Medical Summary | Summary of Care ---
Author Name Unknown Organization [facility] Address [address] [facility] [place] [address] Phone [phone] Care Team Providers Care Courier Name Role Phone Von Lim MD Primary Care Provider +1 [phone] Reason for Visit * Reason Comments Return Visit Encounter Details Date Type Department Care Team (Late st Contact Info) Description 06/09/2024 10:30 AM EST Office Visit Gynecology/Obstetric s [facility] [address] [place] [address] Janee Leos CRNP [address] [place] [address] High-risk in second trimester*; Antepartum multigravida of advanced maternal age; Obesity in , antepartum; Abnormal glucose tolerance in mother complicating ; Encounter for follow-up ultrasound of anatomy Allergies No known active allergiesdocumented as of this encounter (statuses as of 06/09/2024) Medications Loratadine 10 MG Oral Capsule Take 1 Capsule by mouth in the morning. Active 28-0.8 MG Oral Tablet Take by mouth. Active Aspirin 81 MG Oral Tablet Chewable Take 1 Tablet by mouth in the morning. 04/19/2024 Active documented as of this encounter (statuses as of 06/09/2024) Active Problems Problem Noted Date Diagnosed Date [...] as of this encounter (statuses as of 06/09/2024) Resolved Problems Problem Noted Date Diagnosed Date Resolved Date NO KNOWN PROBLEMS 10/31/2008 05/28/2021 documented as of this encounter (statuses as of 06/09/2024) Immunizations Name Administration Dates Next Due H1N1 [...] money to get more. Never true 06/04/2024 [place] Depression Scale Answer Date Recorded [place] Depression Scale Total 2 04/19/2024 The thought [...] 06/04/2024 Does the household have a re lar source of income? (Household - for ages [...] ages 0-17 years) Not on file 06/04/2024 Estimated Date of Delivery Comme nts [...] Sign Reading Time Taken Comments Blood Pressure 120/78 06/09/2024 10:05 AM EST Pulse - - Temperature - - Respiratory Rate - - Oxygen Saturation - - Inhaled Oxygen Concentration - - Weight 88 kg (194 lb) 06/09/2024 10:05 AM EST Height - - Body Mass Index 36.68 06/04/2024 7:47 AM EST documented in this encounter Progress Notes * Janee Leos CRNP - 06/09/2024 10:11 AM EST 20w2d C/o heartburn and headaches. Taking meds for headaches. Tums not helping heartburn well. Suggested Pepcid or Prilosec. +FM. No bleeding. Anatomy u/s today, needs additional views in 2 weeks. PEREZ Garcia * Briseida Andre CMA - 06/09/2024 10:05 AM EST 20w2d + headaches, medication not helping. Follow up anatomy in 2 weeks. documented in this encounter Plan of Treatment Upcoming Encounters Date Type Department Care Team (Late st Contact Info) Description 06/24/2024 8:30 AM EST Imaging Radiology [facility] [address] [place] [address] 07/07/2024 8:15 AM EST Office Visit Gynecology/Obstetrics [facility] [address] [place] [address] Janee Leos CRNP [address] [place] [address] Scheduled Orders Name Type Priority Associated Diagnoses Orde r Schedule US PREG LIMITED 1 OR MORE FETUSES Medical Imaging Routine Encounter for follow-up ultrasound of anatomy Expected: 06/23/2024, Expires: 07/10/2025 Health Maintenance Due Date Last Done Comments [...] Author Reminders Care Plan OB Reminders No [place], Provider documented as of this encounter Medical Devices Not on filedocumented as of this encounter Visit Diagnoses Diagnosis High-risk in second trimester- Primary Antepartum multigravida of advanced maternal age Obesity in , antepartum Obesity complicating , childbirth, or the puerperium, antepartum condition or complication Abnormal glucose tolerance in mother complicating Abnormal maternal glucose tolerance, complicating , childbirth, or the puerperium, unspecified as to episode of care Encounter for follow-up ultrasound of anatomy documented in this encounter Additional Health Concerns Active Problems Noted Date Diagnosed Date OB Reminders 04/24/2024 documented as of this encounter Care Teams Courier Relationship Specialty Start Date End Date Von Lim MD [address] [place] [address] PCP - General Family Medicine 11/14/20 documented as of this encounter
--- OUTSIDE RECORDS SUMMARY | 2024-09-28 14:41 | External Medical Summary ---
Author Name Unknown Address Unknown Organization [id number][place] [place] [address] [place] [address] Laboratory Report Ordering Provider Test Date Status ESTEPHANIA REYES 08/04/2024 07:48:23 Final Observation Date Value Abnormality Reference (Units ) Status Creatinine 08/04/2024 07:48:23 0.6 0.5-1.0 (mg/dL) Final Glomerular filtration rate/1.73 sq M.predicted [Volume Rate/Area] in Serum, Plasma or Blood by Creatinine-based formula (CKD-EPI) 08/04/2024 07:48:23 >90 >=60 (mL/min) Final eGFR is calculated based on the CKD-EPI 2020 equation. Performing Location [facility] [place] [address] [place] [address]
--- OUTSIDE RECORDS SUMMARY | 2024-09-28 14:41 | External Medical Summary ---
Author Name Unknown Address Unknown Organization K0G:[facility]ORY [place] [address] - [address] [place] [address] Laboratory Report Ordering Provider Test Date Status JERRY REYESFRANDY 05/19/2024 07:36:20 Final Based on ACOG guideline, ges tational diabetes mellitus is diagnosed when any of the following is met:
Fasting is greater than or equal to 95 mg/dL
1 hour is greater than or equal to 180 mg/dL
2 hour is greater than or equal to 155 mg/dL
3 hour is greater than or equal to 140 mg/dL Observation Date Value Abnormality Reference (Units ) Status Glucose, fasting 05/19/2024 07:36:20 89 70- 94 (mg/dL) Final Performing Location LAB[facility]ATORY [facility] [place] [address] - [address] [place] [address]
--- OUTSIDE RECORDS SUMMARY | 2024-09-28 14:41 | External Medical Summary ---
Author Name Unknown Address Unknown Organization [id number]:[facility] [place] [address] - [address] [place] [address] Laboratory Report Ordering Provider Test Date Status ERICESTEPHANIA 08/04/2024 07:48:23 Final Based on ACOG guideline, ges tational [...] Abnormality Reference (Units ) Status Glucose, fasting 08/04/2024 07:48:23 92 70- 94 (mg/dL) Final Performing Location LABORATORY [facility] [place] [address] - [address] [place] [address]
--- OUTSIDE RECORDS SUMMARY | 2024-09-28 14:41 | External Medical Summary ---
Author Name Unknown Address Unknown Organization [facility] [address] [place] [address] Laboratory Report Ordering Provider Test Date Status ESTEPHANIA REYES 08/04/2024 07:48:23 Final Observation Date Value Abnormality Reference (Units ) Status SYNC LEUKOCYTES IN BLOOD BY AUTOMATED COUNT 08/04/2024 07:48:23 10.78 4.00-10.80 (K/uL) Final Segs 08/04/2024 07:48:23 66.3 40.0-75.0 (%) Final Lymphs % 08/04/2024 07:48:23 25.4 18.0-42.0 (%) Final Monos 08/04/2024 07:48:23 6.9 1.0-11.0 (%) Final Eosinophils 08/04/2024 07:48:23 1.2 0.0-6.0 (%) Final Basos 08/04/2024 07:48:23 0.2 0.0-2.0 (%) Final Absolute Segs 08/04/2024 07:48:23 7.15 1.80-7.70 (K/uL) Final Lymphs, absolute 08/04/2024 07:48:23 2.74 1.00-4.80 (K/ul) Final Monos, Abs 08/04/2024 07:48:23 0.74 0.00-1.10 (K/uL) Final Eos, Abs 08/04/2024 07:48:23 0.13 0.00-0.70 (K/uL) Final Basos, Abs 08/04/2024 07:48:23 0.02 0.00-0.20 (K/uL) Final Performing Location LAB[facility]ATORY [place] [address] - [address] [place] [address]
--- OUTSIDE RECORDS SUMMARY | 2024-09-28 14:41 | External Medical Summary | Summary of Care ---
Author Name Unknown Organization [facility] Address [address] [facility] [place] [address] Phone [phone] Care Team Providers Care Farmworker [employer] Name Role Phone Von Lim MD Primary Care Provider +1 [phone] Reason for Visit * Reason Comments Return Visit Encounter Details Date Type Department Care Team (Late st Contact Info) Description 07/07/2024 8:15 AM EST Office Visit Gynecology/Obstetric s [facility] [address] [place] [address] Janee Leos CRNP [address] [place] [address] Antepartum multigravida of advanced maternal age*; High-risk in second trimester; Obesity in , antepartum; Abnormal glucose tolerance in mother complicating Allergies No known active allergiesdocumented as of this encounter (statuses as of 07/07/2024) Medications Loratadine 10 MG Oral Capsule Take [...] as of this encounter (statuses as of 07/07/2024) Active Problems Problem Noted Date Diagnosed Date [...] as of this encounter (statuses as of 07/07/2024) Resolved Problems Problem Noted Date Diagnosed Date Resolved Date NO KNOWN PROBLEMS 10/31/2008 05/28/2021 documented as of this encounter (statuses as of 07/07/2024) Immunizations Name Administration Dates Next Due H1N1 [...] money to get more. Never true 06/04/2024 [place] Depression Scale Answer Date Recorded [place] Depression Scale Total 2 04/19/2024 The thought [...] Industry Job Start Date Job End Date [employer] Not on file Not on file Not on fi le documented as of this encounter Last Filed Vital Signs Vital Sign Reading Time Taken Comments Blood Pressure 126/78 07/07/2024 8:21 AM EST Pulse - - Temperature - - Respiratory Rate - - Oxygen Saturation - - Inhaled Oxygen Concentration - - Weight 90.2 kg (198 lb 12.8 oz) 07/07/2024 8:21 AM EST Height - - Body Mass Index 37.59 06/04/2024 7:47 AM EST documented in this encounter Progress Notes * Janee Leos CRNP - 07/07/2024 8:32 AM EST 24w2d Has swelling in hands and feet, reassured not concerning. Feeling some FM, not a lot. Denies bleeding or LOF. 3hr GTT with next visit. PEREZ Garcia * Briseida Andre CMA - 07/07/2024 8:21 AM EST 24w2d ? Normal swelling. In hands and feet. documented in this encounter Plan of Treatment Upcoming Encounters Date Type Department Care Team (Late st Contact Info) Description 08/04/2024 7:50 AM EST Laboratory Laboratory, [facility] [address] [facility] [place] [id number] [facility] [address] [facility] [place] [address] 08/04/2024 8:00 AM EST Office [facility] [address] [place] [address] Janee Leos CRNP [address] [place] [address] Scheduled Orders Name Type Priority Associated Diagnoses Orde r Schedule CBC WITH WBC DIFFERENTIAL AND ANEMIA REFLEX WORKUP Lab Routine Antepartum multigravida of advanced maternal age Expected: 08/02/2024 (Approximate), Expires: 07/07/2025 SYPHILIS ANTIBODY SCREEN WITH REFLEX TO RPR Lab Routine Antepartum multigravida of advanced maternal age Expected: 08/02/2024 (Approximate), Expires: 07/07/2025 GESTATIONAL GLUCOSE TOLERANCE, 3 HOUR Lab Routine Antepartum multigravida of advanced maternal age Expected: 08/02/2024 (Approximate), Expires: 07/07/2025 Health Maintenance Due Date Last Done Comments [...] Author Reminders Care Plan OB Reminders No Mychart, Provider documented as of this encounter Medical Devices Not on filedocumented as of this encounter Visit Diagnoses Diagnosis Antepartum multigravida of advanced maternal age- Primary High-risk in second trimester Obesity in , antepartum Obesity complicating , childbirth, or the puerperium, antepartum condition or complication Abnormal glucose tolerance in mother complicating Abnormal maternal glucose tolerance, complicating , childbirth, or the puerperium, unspecified as to episode of care documented in this encounter Additional Health Concerns Active Problems Noted Date Diagnosed Date OB Reminders 04/24/2024 documented as of this encounter Care Teams Farmworker [employer] Relationship Specialty Start Date End Date Von Lim MD [address] [facility] [place] [address] PCP - General Family Medicine 11/14/20 documented as of this encounter
--- OUTSIDE RECORDS SUMMARY | 2024-09-28 14:41 | External Medical Summary | Summary of Care ---
Author Name Unknown Organization [facility] Address [address] [facility] [place] [address] Phone [phone] Care Team Providers Care Roll Skinner Name Role Phone Von Lim MD Primary Care Provider +1 [phone] Reason for Visit * Reason Comments Outpatient Testing Encounter Details Date Type Department Care Team (Late st Contact Info) Description 05/17/2024 1:50 PM EST Laboratory Laboratory, [facility] [address] [facility] [place] [address] [facility] [address] Arrived Allergies No known active allergiesdocumented as of this encounter (statuses as of 05/17/2024) Medications Loratadine 10 MG Oral Capsule Take 1 Capsule by mouth in the morning. Active 28-0.8 MG Oral Tablet Take by mouth. Active Aspirin 81 MG Oral Tablet Chewable Take 1 Tablet by mouth in the morning. 04/19/2024 Active documented as of this encounter (statuses as of 05/17/2024) Active Problems Problem Noted Date Diagnosed Date High-risk 05/17/2024 Obesity in , antepartum 05/17/2024 Overview (05/17/2024): Early GTT The patient's pre-gravid BMI is 31.76. Antepartum multigravida of advanced maternal age 1004/19/2024 Obesity, Class I, BMI 30.0-34.9 (see actual BMI) 05/30/2021 OAB (overactive bladder) 05/28/2021 Estimated Date of Delivery Comme nts Yes 10/25/2024 Based on last me nstrual period of 01/19/2024 (Exact Date) documented as of this encounter (statuses as of 05/17/2024) Resolved Problems Problem Noted Date Diagnosed Date Resolved Date NO KNOWN PROBLEMS 10/31/2008 05/28/2021 documented as of this encounter (statuses as of 05/17/2024) Immunizations Name Administration Dates Next Due H1N1 [...] money to get more. Never true 01/15/2024 [place] Depression Scale Answer Date Recorded [place] Depression Scale Total 2 04/19/2024 The thought [...] No 01/15/2024 Does the household have a up health systemr source of income? (Household - for ages [...] 06/04/2024 7:40 AM EST Office Visit Family Practice [facility] [address] [place] [address] Von Lim MD [address] [place] [address] 06/09/2024 8:30 AM EST Imaging Radiology [facility] [address] [place] [address] 06/09/2024 10:30 AM EST Office Visit Gynecology/Obstetrics [facility] [address] [place] [address] Janee Leos CRNP [address] [place] [address] Health Maintenance Due Date Last Done Comments Hepatitis B Vaccine (1 of 3 - 19+ 3-dose series) 2002 Depression Screening 06/25/2020 06/25/2019 COVID-19 Vaccine ( season) 2024 Influenza Vaccine (FLU shot) (#1) 2024 05/31/2022, 04/04/2021, 05/12/2020, Additional history exists Mammogram 04/04/2024 04/04/2023 Pap Smear 12/13/2025 12/13/2022, 01/02/2020, 12/08/2015, Additional history exists Diabetes Screening 04/19/2027 [...] Not on filedocumented as of this encounter Additional Health Concerns Active Problems Noted Date Diagnosed Date OB Reminders 04/24/2024 documented as of this encounter Care Teams Roll Skinner Relationship Specialty Start Date End Date Von Lim MD [address] [place] [address] PCP - General Family Medicine 11/14/20 documented as of this encounter
--- OUTSIDE RECORDS SUMMARY | 2024-09-28 14:41 | External Medical Summary ---
Author Name Unknown Address Unknown Organization K01:LAB[facility]ATORY [facility] - [address] [place] [address] Laboratory Report Ordering Provider Test Date Status ESTEPHANIA REYES 08/04/2024 07:48:23 Final Observation Date Value Abnormality Reference (Units ) Status Vitamin B12 08/04/2024 07:48:23 241 [id number] (pg/mL) Final Performing Location LAB[facility]ATORY [facility] - [address] [place] [address]
--- OUTSIDE RECORDS SUMMARY | 2024-09-28 14:41 | External Medical Summary | Summary of Care ---
Author Name Unknown Organization [facility] Address [address] [facility] [place] [address] Phone [phone] Care Team Providers Care Plastic Surgery Technician Name Role Phone Von Lim MD Primary Care Provider +1 [phone] Encounter Details Date Type Department Care Team (Late st Contact Info) Description 05/18/2024 Telephone Gynecology/Obstetrics [facility] [address] [place] [address] Janee Leos CRNP [address] [place] [address] Allergies No known active allergiesdocumented as of this encounter (statuses as of 05/18/2024) Medications Loratadine 10 MG Oral Capsule Take 1 Capsule by mouth in the morning. Active 28-0.8 MG Oral Tablet Take by mouth. Active Aspirin 81 MG Oral Tablet Chewable Take 1 Tablet by mouth in the morning. 04/19/2024 Active documented as of this encounter (statuses as of 05/18/2024) Active Problems Problem Noted Date Diagnosed Date [...] as of this encounter (statuses as of 05/18/2024) Resolved Problems Problem Noted Date Diagnosed Date Resolved Date NO KNOWN PROBLEMS 10/31/2008 05/28/2021 documented as of this encounter (statuses as of 05/18/2024) Immunizations Name Administration Dates Next Due H1N1 [...] money to get more. Never true 01/15/2024 [place] Depression Scale Answer Date Recorded [place] Depression Scale Total 2 04/19/2024 The thought [...] No 01/15/2024 Does the household have a inscription house health centerlar source of income? (Household - for ages [...] encounter Miscellaneous Notes * Telephone Encounter - Briseida Andre CMA - 05/18/2024 9:02 AM EST Called patient, made aware of elevated glucola. Scheduled for 3 hour glucose. * Telephone Encounter - Janee Leos CRNP - 05/18/2024 7:54 AM EST Please notify pt that glucola elevated (149). Needs 3hr GTT. Orders placed. documented in this encounter Plan of Treatment Upcoming Encounters Date Type Department Care Team (Late st Contact Info) Description 05/19/2024 7:40 AM EST Laboratory Laboratory, [facility] [address] [place] [id number] [facility] [place] [address] 06/04/2024 7:40 AM EST Office Visit Family Practice [facility] [address] [place] [address] Von Lim MD [address] [facility] [place] [address] 06/09/2024 8:30 AM EST Imaging Radiology [facility] 132 [facility] [place] [address] 06/09/2024 10:30 AM EST Office Visit Gynecology/Obstetrics [facility] [address] [place] [address] Janee Leos CRNP [address] [place] [address] Scheduled Orders Name Type Priority Associated Diagnoses Orde r Schedule GESTATIONAL GLUCOSE TOLERANCE, 3 HOUR Lab Routine Abnormal glucose tolerance in mother complicating Expected: 05/19/2024 (Approximate), Expires: 05/18/2025 Health Maintenance Due Date Last Done Comments Hepatitis B Vaccine (1 of 3 - 19+ 3-dose series) 2002 Depression Screening 06/25/2020 06/25/2019 COVID-19 Vaccine ( season) 2024 Influenza Vaccine (FLU shot) (#1) 2024 05/31/2022, 04/04/2021, 05/12/2020, Additional history exists Mammogram 04/04/2024 04/04/2023 Pap Smear 12/13/2025 12/13/2022, 02/2020, 12/08/2015, Additional [...] as of this encounter Visit Diagnoses Diagnosis Abnormal glucose tolerance in mother complicating - Primary Abnormal maternal glucose tolerance, complicating , childbirth, or the puerperium, unspecified as to episode of care documented in this encounter Additional Health Concerns Active Problems Noted Date Diagnosed Date OB Reminders 04/24/2024 documented as of this encounter Care Teams Plastic Surgery Technician Relationship Specialty Start Date End Date Von Lim MD [address] [place] [address] PCP - General Family Medicine 11/14/20 documented as of this encounter
--- OUTSIDE RECORDS SUMMARY | 2024-09-28 14:41 | External Medical Summary ---
Author Name Unknown Address Unknown Organization K0G:LAB[facility]ATORY [facility] [place] [address] - [address] [place] [address] Laboratory Report Ordering Provider Test Date Status ESTEPHANIA REYES 05/19/2024 08:38:09 Final Observation Date Value Abnormality Reference (Units ) Status Glucose [Mass/volume] in Serum or Plasma --1 hour post dose glucose 05/19/2024 08:38:09 153 70-179 (mg/dL) Final Performing Location LABORATORY [facility] [address] - [address] [place] [address]
--- OUTSIDE RECORDS SUMMARY | 2024-09-28 14:41 | External Medical Summary ---
Author Name Unknown Address Unknown Organization K01:LABORATORY C - [address] [place] [address] Laboratory Report Ordering Provider Test Date Status ESTEPHANIA REYES 08/04/2024 07:48:23 Final Observation Date Value Abnormality Reference (Units ) Status Folic Acid 08/04/2024 07:48:23 >20.0 >4.5 (ng/ mL) Final Performing Location LAB[facility]ORY [facility] - [address] [place] [address]
--- OUTSIDE RECORDS SUMMARY | 2024-09-28 14:41 | External Medical Summary ---
Author Name Unknown Address Unknown Organization K01:[facility] [place] [facility] [address] Laboratory Report Ordering Provider Test Date Status ERICESTEPHANIA 08/04/2024 07:48:23 Final Observation Date Value Abnormality Reference (Units ) Status Retic, % (auto) 08/04/2024 07:48:23 2.77 Above high normal 0.80-1.90 (%) Final Reticulocytes, Absolute 08/04/2024 07:48:23 98.6 31.3-100.1 (K/uL) Final Reticulocyte fraction, immature 08/04/2024 07:48:23 26.9 Above high normal 2.5-20.6 (%) Final Reticulocyte HGB 08/04/2024 07:48:23 33.3 29.7-37.4 (pg) Final Performing Location [facility] [place] [address] [place] [address]
--- OUTSIDE RECORDS SUMMARY | 2024-09-28 14:41 | External Medical Summary ---
Author Name Unknown Address Unknown Organization K01:LABORATORY [facility] - [address] [place] [address] Laboratory Report Ordering Provider Test Date Status ESTEPHANIA REYES 08/04/2024 07:48:23 Final Observation Date Value Abnormality Reference (Units ) Status TSH 08/04/2024 07:48:23 1.43 0.27-4.20 (uIU/mL) Final Performing Location LABORATORY [facility] - [address] [place] [address]
--- OUTSIDE RECORDS SUMMARY | 2024-09-28 14:41 | External Medical Summary | Summary of Care ---
Author Name Unknown Organization [facility] Address [address] [facility] [place] [address] Phone [phone] Care Team Providers Care Train Director Name Role Phone Von Lim MD Primary Care Provider +1 [phone] Reason for Visit * Reason Comments Outpatient Testing Encounter Details Date Type Department Care Team (Late st Contact Info) Description 05/17/2024 1:20 PM EST Laboratory Laboratory, [facility] [place] [address] [facility] [place] [address] Multigravida of advanced maternal age in first trimester; Class 1 obesity due to excess calories with serious comorbidity in adult, unspecified BMI; High-risk in second trimester Allergies No known [...] money to get more. Never true 01/15/2024 Galena Depression Scale Answer Date Recorded [place] Depression Scale Total 2 04/19/2024 The thought [...] No 01/15/2024 Does the household have a [facility] source of income? (Household - for ages [...] 7:40 AM EST Office Visit Family Practice [facility] [address] [place] [address] Von Lim MD [address] [place] [address] 06/09/2024 8:30 AM EST Imaging Radiology [facility] [address] [place] [address] 06/09/2024 10:30 AM EST Office Visit Gynecology/Obstetrics [facility] [address] [place] [address] Janee Leos CRNP [address] [place] [address] Pending Results Name Type Priority Associated Diagnoses Date /Time MATERNAL SERUM AFP Lab Routine High-risk in second trimester 05/17/2024 2:22 PM EST Health Maintenance Due Date Last Done Comments Hepatitis B Vaccine (1 of 3 - 19+ 3-dose series) 2002 Depression Screening 06/25/2020 06/25/2019 COVID-19 Vaccine ( - season) 2024 Influenza [...] Procedure Name Priority Date/Time Associated Diagnosis Comments 50-G GESTATIONAL GLUCOSE, 1 HOUR Routine 05/17/2024 2:22 PM EST Multigravida of advanced maternal age in first trimester Class 1 obesity due to excess calories with serious comorbidity in adult, unspecified BMI documented in this encounter Results * (ABNORMAL) 50-G GESTATIONAL GLUCOSE, 1 HOUR (05/17/2024 2:22 PM EST) 50-g Gestational Glucose, 1 Hour 149(H) 70 - 129 mg/dL 05/17/2024 3:02 PM EST LABORATORY [facility] 57-10 Blood Venous blood specimen / Unknown Venipuncture / Unknown 05/17/2024 2:22 PM EST 05/17/2024 2:22 PM EST Janee TODD LAB BLOOD ORDERABLES Final Re sult LABORATORY [facility] 57-10 [address] [place] [address] documented in this encounter Visit Diagnoses Diagnosis Multigravida of advanced maternal age in first trimester Class 1 obesity due to excess calories with serious comorbidity in adult, unspecified BMI High-risk in second trimester documented in this encounter Additional Health Concerns Active Problems Noted Date Diagnosed Date OB Reminders 04/24/2024 documented as of this encounter Care Teams Train Director Relationship Specialty Start Date End Date Von Lim MD [address] [place] [address] PCP - General Family Medicine 11/14/20 documented as of this encounter
--- OUTSIDE RECORDS SUMMARY | 2024-09-28 14:41 | External Medical Summary ---
Author Name Unknown Address Unknown Organization K01:[facility] [place] [address] [place] [address] Laboratory Report Ordering Provider Test Date Status ESTEPHANIA REYES 08/04/2024 07:48:23 Final Observation Date Value Abnormality Reference (Units ) Status Treponema pallidum Ab [Presence] in Serum by Immunoassay 08/04/2024 07:48:23 Nonreactive Nonreactive Final No serologic evidence of syp hilis. No additional testing clinicially indicated at this time. Consider repeat testing in 2-4 weeks if acute or primary syphilis is suspected. Performing Location LABORATORY [facility] [address] [place] [address]
--- OUTSIDE RECORDS SUMMARY | 2024-09-28 14:41 | External Medical Summary ---
Author Name Unknown Address Unknown Organization K0G:LABORATORY [facility] 57-10 - [address] [place] [address] Laboratory Report Ordering Provider Test Date Status ESTEPHANIA REYES 08/04/2024 08:55:06 Final Observation Date Value Abnormality Reference (Units ) Status Glucose [Mass/volume] in Serum or Plasma --1 hour post dose glucose 08/04/2024 08:55:06 145 70-179 (mg/dL) Final Performing Location LABORATORY [facility] [place] 57-1 0 - [address] [place] [address]
--- OUTSIDE RECORDS SUMMARY | 2024-09-28 14:41 | External Medical Summary | Summary of Care ---
Author Name Unknown Organization [facility] Address [address] [facility] [place] [address] Phone [phone] Care Team Providers Care Oyster Buyer Name Role Phone Von Lim MD Primary Care Provider [phone] [phone] Reason for Visit * Reason Comments Outpatient Testing Encounter Details Date Type Department Care Team (Late st Contact Info) Description 05/19/2024 7:40 AM EST Laboratory Laboratory, [facility] 132 [facility] [place] [address] [facility] 132 [facility] [place] [address] Abnormal glucose tolerance in mother complicating Allergies No known active allergiesdocumented as of this encounter (statuses as of 05/19/2024) Medications Loratadine 10 MG Oral Capsule Take 1 Capsule by mouth in the morning. Active 28-0.8 MG Oral Tablet Take by mouth. Active Aspirin 81 MG Oral Tablet Chewable Take 1 Tablet by mouth in the morning. 04/19/2024 Active documented as of this encounter (statuses as of 05/19/2024) Active Problems Problem Noted Date Diagnosed Date [...] as of this encounter (statuses as of 05/19/2024) Resolved Problems Problem Noted Date Diagnosed Date Resolved Date NO KNOWN PROBLEMS 10/31/2008 05/28/2021 documented as of this encounter (statuses as of 05/19/2024) Immunizations Name Administration Dates Next Due H1N1 [...] money to get more. Never true 01/15/2024 Johnson Depression Scale Answer Date Recorded Johnson Depression Scale Total 2 04/19/2024 The thought [...] 7:40 AM EST Office Visit Family Practice [facility] [address] [place] [address] Von Lim MD [address] [place] [address] 06/09/2024 8:30 AM EST Imaging Radiology [facility] [address] [place] [address] 06/09/2024 10:30 AM EST Office Visit Gynecology/Obstetrics [facility] [address] [place] [address] Janee Leos CRNP [address] [place] [address] Pending Results Name Type Priority Associated Diagnoses Date /Time GESTATIONAL GLUCOSE TOLERANCE, 3 HOUR Lab Routine Abnormal glucose tolerance in mother complicating 05/19/2024 7:36 AM EST 100-G GESTATIONAL GLUCOSE, 3 HOUR Lab Routine Abnormal glucose tolerance in mother complicating 05/19/2024 10:42 AM EST Health Maintenance Due Date Last Done Comments Hepatitis B Vaccine (1 of 3 - 19+ 3-dose series) 2002 Depression Screening 06/25/2020 06/25/2019 COVID-19 Vaccine ( season) 2024 Influenza Vaccine (FLU shot) (#1) 2024 05/31/2022, 04/04/2021, 05/12/2020, Additional history exists Mammogram 04/04/2024 04/04/2023 Pap Smear 12/13/2025 12/13/2022, 01/0 02/2020, 12/08/2015, [...] Author Reminders Care Plan OB Reminders No Alesha, Provider documented as of this encounter Medical Devices Not on filedocumented as of this encounter Procedures Procedure Name Priority Date/Time Associated Diagnosis Comments 100-G GESTATIONAL GLUCOSE, 2 HOUR Routine 05/19/2024 9:39 AM EST Abnormal glucose tolerance in mother complicating 100-G GESTATIONAL GLUCOSE, 1 HOUR Routine 05/19/2024 8:38 AM EST Abnormal glucose tolerance in mother complicating 100-G GESTATIONAL GLUCOSE, FASTING Routine 05/19/2024 7:36 AM EST Abnormal glucose tolerance in mother complicating documented in this encounter Results * 100-G GESTATIONAL GLUCOSE, 2 HOUR (05/19/2024 9:39 AM EST) 100-g Gestational Glucose, 2 Hour 111 70 - 154 mg/dL 05/19/2024 10:38 AM EST [facility] Blood Venous blood specimen / Unknown Venipuncture / Unknown 05/19/2024 9:39 AM EST 05/19/2024 9:39 AM EST us Janee TODD LAB BLOOD ORDERABLES Final Re sult LABORATORY [facility] 57-10 [address] [facility] [address] * 100-G GESTATIONAL GLUCOSE, 1 HOUR (05/19/2024 8:38 AM EST) 100-g Gestational Glucose, 1 Hour 153 70 - 179 mg/dL 05/19/2024 9:33 AM EST [facility] [place] [facility]10 Blood Venous blood specimen / Unknown Venipuncture / Unknown 05/19/2024 8:38 AM EST 05/19/2024 8:38 AM EST Janee TODD LAB BLOOD ORDERABLES Final Re sult Performing Organization Address [facility]/ZIP Co de Phone Number LAB[facility]ATORY [place] [place] [address] * 100-G GESTATIONAL GLUCOSE, FASTING (05/19/2024 7:36 AM EST) 100-g Gestational Glucose, Fasting 89 70 - 94 mg/dL 05/19/2024 8:55 AM EST [facility] [place] [facility]10 Blood Venous blood specimen / Unknown Venipuncture / Unknown 05/19/2024 7:36 AM EST 05/19/2024 7:36 AM EST Narrative LAB[facility]ORY [place] 57-10 - 05/19/2024 8:55 AM EST Based on ACOG guideline, gestational diabetes mellitus is diagnosed when any of the following is met: Fasting is greater than or equal to 95 mg/dL 1 hour is greater than or equal to 180 mg/dL 2 hour is greater than or equal to 155 mg/dL 3 hour is greater than or equal to 140 mg/dL Janee TODD LAB BLOOD ORDERABLES Final Re sult Performing Organization Address [facility]/ZIP Co de Phone Number LAB[facility]ATORY [place] [facility] [place] [address] documented in this encounter Visit Diagnoses Diagnosis Abnormal glucose tolerance in mother complicating Abnormal maternal glucose tolerance, complicating , childbirth, or the puerperium, unspecified as to episode of care documented in this encounter Additional Health Concerns Active Problems Noted Date Diagnosed Date OB Reminders 04/24/2024 documented as of this encounter Care Teams Oyster Buyer Relationship Specialty Start Date End Date Von Lim MD [address] [place] [address] PCP - General Family Medicine 11/14/20 documented as of this encounter
--- OUTSIDE RECORDS SUMMARY | 2024-09-28 14:42 | External Medical Summary | Summary of Care ---
Author Name Unknown Organization [facility] Address [address] [facility] [place] [address] Phone [phone] Care Team Providers Care Historiography Teacher Name Role Phone Von Lim MD Primary Care Provider [phone] [phone] Reason for Visit * Reason Comments Outpatient Testing Encounter Details Date Type Department Care Team (Late st Contact Info) Description 04/19/2024 1:20 PM EDT Laboratory Laboratory, [facility] [place] [address] [facility] 132 [facility] [place] [address] Multigravida of advanced maternal age in first trimester Allergies No known active allergiesdocumented as of this encounter (statuses as of 04/19/2024) Medications Medication Sig Dispensed Refills Start Date End Date Status Loratadine 10 MG Oral Capsule Take 1 Capsule by mouth in the morning. Active 28-0.8 MG Oral Tablet Take by mouth. Active oxyBUTYnin Chloride 5 MG Oral Tablet (Ditropan) Take 1 Tablet by mouth in the morning and 1 Tablet before bedtime. 180 Tablet 3 06/02/2023 Active Additional Information Patient not taking.Reported on 04/01/2024 documented as of this encounter (statuses as of 04/19/2024) Active Problems Problem Noted Date Diagnosed Date Antepartum multigravida of advanced maternal age 1004/19/2024 Obesity, Class I, BMI 30.0-34.9 (see actual BMI) 05/30/2021 OAB (overactive bladder) 05/28/2021 Estimated Date of Delivery Comme nts Yes 10/25/2024 Based on last me nstrual period of 01/19/2024 (Exact Date) documented as of this encounter (statuses as of 04/19/2024) Resolved Problems Problem Noted Date Diagnosed Date Resolved Date NO KNOWN PROBLEMS 10/31/2008 05/28/2021 documented as of this encounter (statuses as of 04/19/2024) Immunizations Name Administration Dates Next Due H1N1 [...] money to get more. Never true 01/15/2024 Childcare Answer Date Recorded Do you feel [...] Assigned at Female 10/30/2022 7:49 AM EDT Gender Identity Female 10/30/2022 7:49 AM EDT Sexual Orientation Straight 10/30/2022 7: 49 AM EDT Job Start Date Occupation Industry Not on file Not on file Not on file documented as of this encounter Plan of Treatment Upcoming Encounters Date Type Department Care Team (Late st Contact Info) Description 04/19/2024 1:45 PM EDT Office Visit Gynecology/Obstetric s [facility] [address] [place] [address] Janee Leos CRNP [address] [place] [address] Multigravida of advanced maternal age in first trimester*; Class 1 obesity due to excess calories with serious comorbidity in adult, unspecified BMI 05/17/2024 1:20 PM EST [facility] [address] [place] [address] [place], [facility] [address] [place] [address] 05/17/2024 1:30 PM EST Office Visit Gynecology/Obstetric s [facility] [address] [place] [address] Leydi Ortez CRNP [address] [place] [address] 06/04/2024 7:40 AM EST Office Visit Family Practice [facility] [address] [place] [address] Von Lim MD [address] [place] [address] Pending Results Name Type Priority Associated Diagnoses Date /Time TYPE AND SCREEN Lab Routine Multigravida of advanced maternal age in first trimester 04/19/2024 1:16 PM EDT RUBELLA IGG ANTIBODY Lab Routine Multigravida of advanced maternal age in first trimester 04/19/2024 1:16 PM EDT HEPATITIS B SURFACE ANTIGEN Lab Routine Multigravida of advanced maternal age in first trimester 04/19/2024 1:16 PM EDT HIV ANTIGEN & ANTIBODY SCREEN W/ CONFIRMATION Lab Routine Multigravida of advanced maternal age in first trimester 04/19/2024 1:16 PM EDT CBC WITH WBC DIFFERENTIAL AND ANEMIA REFLEX WORKUP Lab Routine Multigravida of advanced maternal age in first trimester 04/19/2024 1:16 PM EDT HEPATITIS C ANTIBODY SCREEN WITH PROGRESSION TO HEPATITIS C RNA QUANTITATIVE Lab Routine Multigravida of advanced maternal age in first trimester 04/19/2024 1:16 PM EDT SYPHILIS ANTIBODY SCREEN WITH REFLEX TO RPR Lab Routine Multigravida of advanced maternal age in first trimester 04/19/2024 1:16 PM EDT QNATAL ADVANCED (QUEST) Lab Routine Multigravida of advanced maternal age in first trimester 04/19/2024 1:16 PM EDT COMPREHENSIVE METABOLIC PANEL Lab Routine Multigravida of advanced maternal age in first trimester 04/19/2024 1:16 PM EDT ANEMIA CBC Lab Routine Multigravida of advanced maternal age in first trimester 04/19/2024 1:16 PM EDT DIFFERENTIAL, AUTOMATED Lab Routine Multigravida of advanced maternal age in first trimester 04/19/2024 1:16 PM EDT ANEMIA REFLEX CHEMISTRY HOLD Lab Routine Multigravida of advanced maternal age in first trimester 04/19/2024 1:16 PM EDT HEPATITIS C ANTIBODY Lab Routine Multigravida of advanced maternal age in first trimester 04/19/2024 1:16 PM EDT HEPATITIS C RNA ADD ON Lab Routine Multigravida of advanced maternal age in first trimester 04/19/2024 1:16 PM EDT SYPHILIS ANTIBODY SCREEN Lab Routine Multigravida of advanced maternal age in first trimester 04/19/2024 1:16 PM EDT Health Maintenance Due Date Last Done Comments HIV Screening 1998 Hepatitis C Screening 2001 Hepatitis B Vaccine (1 of 3 - 19+ 3-dose series) 2002 Depression Screening 06/25/2020 06/25/2019 COVID-19 Vaccine ( season) 2024 Influenza Vaccine (FLU shot) (#1) 2024 05/31/2022, 04/04/2021, 05/12/2020, Additional history exists Mammogram 04/04/2024 04/04/2023 Diabetes Screening 05/31/2025 05/31/2022, 05/31/2022 Pap Smear 12/13/2025 12/13/2022, 01/0 02/2020, 12/08/2015, Additional history exists Cervical Cancer Screening 12/14/2027 HPV/Co-Test 12/14/2027 12/13/2022 [...] Multigravida of advanced maternal age in first trimester- Primary Class 1 obesity due to excess calories with serious comorbidity in adult, unspecified BMI Multigravida of advanced maternal age in first trimester documented in this encounter Care Teams Historiography Teacher Relationship Specialty Start Date End Date Von Lim MD [address] [place] [address] PCP - General Family Medicine 11/14/20 documented as of this encounter
--- OUTSIDE RECORDS SUMMARY | 2024-09-28 14:42 | External Medical Summary ---
Author Name Unknown Address Unknown Organization K01:LABORATORY [facility] - [address] [place] [address] Laboratory Report Ordering Provider Test Date Status ESTEPHANIA REYES 04/19/2024 13:16:18 Final Observation Date Value Abnormality Reference (Units ) Status ABO 04/19/2024 13:16:18 O Final RH 04/19/2024 13:16:18 Positive Final RED BLOOD CELL ANTIBODY SCREEN 04/19/2024 13:16:18 Negative Final SPECIMEN EXPIRATION DATE 04/19/2024 13:16:18 04/22/2024 23:59 Final Performing Location LABORATORY [facility] - [address] [place] [address]
--- OUTSIDE RECORDS SUMMARY | 2024-09-28 14:42 | External Medical Summary ---
Author Name Unknown Address Unknown Organization K0G:LABORATORY [place] 57-10 - [address] [place] [address] Laboratory Report Ordering Provider Test Date Status ESTEPHANIA REYES 04/19/2024 13:16:18 Final Observation Date Value Abnormality Reference (Units ) Status BUN 04/19/2024 13:16:18 14 6-20 (mg/dL) Final Creatinine 04/19/2024 13:16:18 0.8 0.5-1.0 (mg/dL) Final Glomerular filtration rate/1.73 sq M.predicted [Volume Rate/Area] in Serum, Plasma or Blood by Creatinine-based formula (CKD-EPI) 04/19/2024 13:16:18 >90 >=60 (mL/min) Final eGFR is calculated based on the CKD-EPI 2020 equation. Sodium 04/19/2024 13:16:18 135 135-146 (m mol/L) Final Potassium 04/19/2024 13:16:18 4.4 3.5-5.1 (m mol/L) Final Cl 04/19/2024 13:16:18 100 98-107 (mm ol/L) Final CO2 04/19/2024 13:16:18 23 22-32 (mmo l/L) Final Anion gap 04/19/2024 13:16:18 12 7-15 (mmol /L) Final Glucose 04/19/2024 13:16:18 91 70-120 (mg /dL) Final Albumin 04/19/2024 13:16:18 4.1 3.8-5.0 (g /dL) Final AST (Aspartate aminotransferase) 04/19/2024 13:16:18 24 10-35 (U/L) Final Alk Phos 04/19/2024 13:16:18 70 35-130 (U/ L) Final Bilirubin, Total 04/19/2024 13:16:18 <0.2 <=1 .2 (mg/dL) Final Calcium 04/19/2024 13:16:18 9.3 8.4-10.2 ( mg/dL) Final Protein 04/19/2024 13:16:18 6.9 6.0-8.3 (g /dL) Final ALT (Alanine aminotransferase) 04/19/2024 13:16:18 21 10-35 (U/L) Final Per[facility] - [address] [place] [address]
--- OUTSIDE RECORDS SUMMARY | 2024-09-28 14:42 | External Medical Summary | Summary of Care ---
Author Name Unknown Organization [facility] Address [address] [facility] [place] [address] Phone [phone] Care Team Providers Care Chinese Teacher Name Role Phone Von Lim MD Primary Care Provider [phone] [phone] Reason for Visit * Reason Comments Return Visit Encounter Details Date Type Department Care Team (Late st Contact Info) Description 05/17/2024 1:30 PM EST Office Visit Gynecology/Obstetric s [facility] [address] [place] [address] BackLeydi hopkins CRNP [address] [place] [address] High-risk in second trimester*; Antepartum multigravida of advanced maternal age; Obesity in , antepartum Allergies No known active allergiesdocumented as of this encounter (statuses as of 05/17/2024) Medications Loratadine 10 MG Oral Capsule Take 1 Capsule by mouth in the morning. Active 28-0.8 MG Oral Tablet Take by mouth. Active Aspirin 81 MG Oral Tablet Chewable Take 1 Tablet by mouth in the morning. 4 Active oxyBUTYnin Chloride 5 MG Oral Tablet (Ditropan) Take 1 Tablet by mouth in the morning and 1 Tablet before bedtime. 180 Tablet 3 3 05/17/20 24 Discontinu ed(Medicat ion List Clean Up) documented as of this encounter (statuses as [...] money to get more. Never true 01/15/2024 [place] Depression Scale Answer Date Recorded [place] Depression Scale Total 2 04/19/2024 The thought [...] Sign Reading Time Taken Comments Blood Pressure 118/76 05/17/2024 1:36 PM EST Pulse - - Temperature - - Respiratory Rate - - Oxygen Saturation - - Inhaled Oxygen Concentration - - Weight 78.5 kg (173 lb) 05/17/2024 1:36 PM EST Height - - Body Mass Index 32.71 01/15/2024 2:24 PM EDT documented in this encounter Progress Notes * Leydi Ortez CRNP - 05/17/2024 1:41 PM EST 17w0d Frequent HAs, similar to pre-. No vision changes. Tylenol not helping, staying hydrated. Provided with migraine cocktail. No cramping, bleeding. No flutters yet. Discussed option of seeing MFM and completing anatomy scan there; pt declines, agreeable to referral if medically indicated. Discussed MSAFP and role in screening for ONTD, will get today. Return in 3 weeks for visit/anatomy scan. PEREZ Waldrop * Briseida Andre CMA - 05/17/2024 1:36 PM EST 17w0d Denies any concerns documented in this encounter Plan of Treatment Upcoming Encounters Date Type Department Care Team (Late st Contact Info) Description 06/04/2024 7:40 AM EST Office Visit Family Practice [facility] [address] [place] [address] Von Lim MD [address] [place] [address] 06/09/2024 8:30 AM EST Imaging Radiology [facility] [address] [place] [address] 06/09/2024 10:30 AM EST Office Visit Gynecology/Obstetrics [facility] [address] [place] [address] Janee Leos CRNP [address] [place] [address] Scheduled Orders Name Type Priority Associated Diagnoses Orde r Schedule US PREG SINGLE/1ST GEST, 14 WEEKS OR LATER Medical Imaging Routine High-risk in second trimester Expected: 06/07/2024 (Approximate), Expires: 06/16/2025 MATERNAL SERUM AFP Lab Routine High-risk in second trimester Expected: 05/17/2024, Expires: 05/17/2025 Health Maintenance Due Date Last Done Comments Hepatitis B Vaccine (1 of 3 - 19+ 3-dose series) 2002 Depression Screening 06/25/2020 06/25/2019 COVID-19 Vaccine (2023- season) 2024 Influenza Vaccine [...] or the puerperium, antepartum condition or complication documented in this encounter Additional Health Concerns Active Problems Noted Date Diagnosed Date OB Reminders 04/24/2024 documented as of this encounter Care Teams Chinese Teacher Relationship Specialty Start Date End Date Von Lim MD [address] [place] [address] PCP - General Family Medicine 11/14/20 documented as of this encounter
--- OUTSIDE RECORDS SUMMARY | 2024-09-28 14:42 | External Medical Summary ---
Author Name Unknown Address Unknown Organization [id number]:LABORATORY [facility] [place] - [address] [place] [address] Laboratory Report Ordering Provider Test Date Status ERICESTEPHANIA 04/19/2024 13:13:01 Final Normal: � � � <150 mg/ g creatinine
High: � � � � � 150-500 mg/g creatinine
Very High: � >500 mg/g creatinine
Nephrotic: � >3000 mg/g creatinine Observation Date Value Abnormality Reference (Units ) Status Protein/Creatinine [Ratio] in Urine 04/19/2024 13:13:01 <88 <150 (mg/g ) Final Protein, Urine 04/19/2024 13:13:01 <6 (mg/dL) Final Creatinine, Urine 04/19/2024 13:13:01 68 (mg/dL) Final Performing Location LABORATORY [facility] [place] - [address] [place] [address]
--- OUTSIDE RECORDS SUMMARY | 2024-09-28 14:42 | External Medical Summary ---
Author Name Unknown Address Unknown Organization [id number]:[facility] [place] [address] [place] [address] Ave. [facility] [address] Laboratory Report Ordering Provider Test Date Status ESTEPHANIA REYES 04/19/2024 13:16:18 Final Observation Date Value Abnormality Reference (Units ) Status HIV 1+2 Ab+HIV1 p24 Ag [Presence] in Serum or Plasma by Immunoassay 04/19/2024 13:16:18 Negative Negative Final Negative HIV-1/2 antigen and antibody screening tset results usually indicate the absence of HIV-1 and HIV-2 infection. However, such negative results do not rule-out acute HIV infection. If acute HIV-1 infection is highly suspected, it is recommended that a specimen be submitted for detection of HIV-1 RNA. Performing Location LAB[facility]ORY [facility] [place] - [address] [place] [address] Michele. [facility] [address]
--- OUTSIDE RECORDS SUMMARY | 2024-09-28 14:42 | External Medical Summary ---
Author Name Unknown Address Unknown Organization K01:LABORATORY [facility] - [address] [place] [address] Laboratory Report Ordering Provider Test Date Status ESTEPHANIA REYES 04/19/2024 13:16:18 Final Observation Date Value Abnormality Reference (Units ) Status Rubella virus IgG Ab [Presence] in Serum 04/19/2024 13:16:18 Positive Abnormal Negative Final A positive result is consist ent with having had rubella virus or vaccination. Performing Location LABORATORY [facility] - [address] [place] [address]
--- OUTSIDE RECORDS SUMMARY | 2024-09-28 14:42 | External Medical Summary ---
Author Name Unknown Address Unknown Organization [id number]:LABORATORY [facility] [place] [address] [place] [address] Laboratory Report Ordering Provider Test Date Status ESTEPHANIA REYES 04/19/2024 13:14:00 Final Observation Date Value Abnormality Reference (Units ) Status Color of Urine by Auto 04/19/2024 13:14:00 Yellow Light Yellow, Yellow Final Clarity, Urine 04/19/2024 13:14:00 Clear Clear Final Glucose [Mass/volume] in Urine by Automated test strip 04/19/2024 13:14:00 Negative Negative (mg/dL) Final Bilirubin.total [Presence] in Urine by Automated test strip 04/19/2024 13:14:00 Negative Negative Final Ketones [Mass/volume] in Urine by Automated test strip 04/19/2024 13:14:00 Negative Negative (mg/dL) Final Specific gravity, Urine 04/19/2024 13:14:00 1.020 1.003-1.030 Final Hemoglobin [Presence] in Urine by Automated test strip 04/19/2024 13:14:00 Negative Negative Final pH, Urine 04/19/2024 13:14:00 6.0 5.0, 5.5, 6.0, 6.5, 7.0, 7.5 (units) Final Protein [Mass/volume] in Urine by Automated test strip 04/19/2024 13:14:00 Negative Negative (mg/dL) Final Urobilinogen, Urine 04/19/2024 13:14:00 0.2 0.2, 1.0 (mg/dL) Final Nitrite [Presence] in Urine by Automated test strip 04/19/2024 13:14:00 Negative Negative Final Leukocyte esterase [Presence] in Urine by Automated test strip 04/19/2024 13:14:00 Negative Negative Final Performing Location LABORATORY [facility] [place] [address] - [address] [place] [address]
--- OUTSIDE RECORDS SUMMARY | 2024-09-28 14:42 | External Medical Summary | Summary of Care ---
Author Name Unknown Organization [facility] Address [address] [facility] [place] [address] Phone [phone] Care Team Providers Care Regulatory And Compliance Technician Name Role Phone Von Lim MD Primary Care Provider [phone] Reason for Visit * Reason Comments New Visit Encounter Details Date Type Department Care Team (Late st Contact Info) Description 04/19/2024 1:45 PM EDT Office Visit Gynecology/Obstetric s Esteban Chadwick [address] [place] [address] Janee Leos CRNP [address] [place] [address] Multigravida of advanced maternal age in first trimester*; Class 1 obesity due to excess calories with serious comorbidity in adult, unspecified BMI Allergies No known active allergiesdocumented as of [...] Additional Information Patient not taking.Reported on 04/01/2024 Aspirin 81 MG Oral Tablet Chewable Take [...] No 01/15/2024 Does the household have a [facility] source of income? (Household - for ages [...] on file documented as of this encounter Last Filed Vital Signs Vital Sign Reading Time Taken Comments Blood Pressure 120/82 04/19/2024 12:48 PM EDT Pulse - - Temperature - - Respiratory Rate - - Oxygen Saturation - - Inhaled Oxygen Concentration - - Weight 76.7 kg (169 lb) 04/19/2024 12:48 PM EDT Height - - Body Mass Index 31.95 01/15/2024 2:24 PM EDT documented in this encounter Progress Notes * Janee Leos CRNP - 04/19/2024 1:14 PM EDT HPI: Michell Abreu is a 39 year old year old female here for NOB visit. 13w0d . EDC 10/25/24. Early dating u/s confirming single viable IUP. Reviewed PMH, PSH, social hx, and family hx with pt. Pt is AMA. Discussed genetic screening tests with pt. She is interested in NIPT. Will check coverage. symptoms: no nausea, no vomiting, no breast tenderness, no fatigue, no vaginal bleeding since LMP. She is taking PNV. Past Medical History: Diagnosis Date OAB (overactive bladder) 05/28/2021 Obesity, Class I, BMI 30.0-34.9 (see actual BMI) 05/30/2021 Past Surgical History: Procedure Laterality Date DENTAL SURGERY PROCEDURE NEC wisdom teeth Current outpatient prescriptions Current Outpatient Medications Medication Sig Dispense Refill Loratadine 10 MG Oral Capsule Take 1 Capsule by mouth in the morning. 28-0.8 MG Oral Tablet Take by mouth. oxyBUTYnin Chloride 5 MG Oral Tablet (Ditropan) Take 1 Tablet by mouth in the morning and 1 Tablet before bedtime. (Patient not taking: Reported on 04/01/2024) 180 Tablet 3 No current facility-administered medications for this visit. 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 (Adult - for ages 18 years and over): No Does your family have trouble paying for medicine? (Household - for ages 0-17 years): Not on file Food Insecurity: No Food Insecurity (01/15/2024) Food Insecurity Do you need food for this week? (Adult - for ages 18 years and over): No Are you able to get enough food for your family? (Household - for ages 0-17 years): Not on file Does your family need food this week? (Household - for ages 0-17 years): Not on file Do you always have enough food for your family? (Household - for ages 0-17 years): Not on file Transportation Needs: No Transportation Needs (01/15/2024) Transportation Needs Do you have trouble getting a ride to medical visits or work? (Adult - for ages 18 years and over):Not on file Does your family have a hard time getting a ride to doctors’ visits? (Household - for ages 0-17 years): Not on file Has lack of transportation kept you from medical appointments, meetings, work, or from getting things needed for daily living? Check all that apply. (Adult - for ages 18 years and over): No Do you (or your family) have trouble finding or paying for a ride (transportation)? (Household - for ages 0-17 years): Not on file Social Connections: Socially Integrated (01/15/2024) Social Connections How often do you feel lonely or isolated from those around you? (Adult - for ages 18 years and over): Rarely Housing Stability: Low Risk (01/15/2024) Housing Stability Do you currently live in a fdc or have no steady place to sleep at night? (Adult - for ages 18 years and over): No Do you think you are at risk of becoming homeless? (Adult - for ages 18 years and over): Not on file Does your family worry about paying for your home or becoming homeless? (Household - for ages 0-17 years): Not on file Are you homeless or worried that you might be in the future? (Adult - for ages 18 years and over): No Are you (or your family) homeless or worried that you might be in the future? (Household - for ages0-17 years): Not on file Family History Family History Problem Relation Name Age of Onset Endocrine Disorder Mother thyroid Endocrine Disorder Sister Thyroid Disorder Sister hypothyroid Diabetes Grandmother (Maternal) Cancer Grandfather (Maternal) 83 brain CA, smoker Other (Other) Grandmother (Paternal) age 94 Breast Cancer Aunt (Unspecified) great aunt Obstetric History OB History Para Term AB Living 2 0 0 0 1 0 SAB IAB Ectopic Multiple Live Births 1 0 0 0 # Outcome Date GA Lbr Ole/2nd Weight Sex Type Anes PTL Lv 2 Current 1 SAB 10/31/22 SPONTANEOUS PHYSICAL EXAM: See physical IMPRESSION: Multigravida of advanced maternal age in first trimester (Primary) - CULTURE, URINE, QUANTITATIVE; Future; Expected date: 04/19/2024 - TYPE AND SCREEN; Future; Expected date: 04/19/2024 - RUBELLA IGG ANTIBODY; Future; Expected date: 04/19/2024 - HEPATITIS B SURFACE ANTIGEN; Future; Expected date: 04/19/2024 - HIV ANTIGEN & ANTIBODY SCREEN W/ CONFIRMATION; Future; Expected date: 04/19/2024 - CHLAMYDIA TRACHOMATIS AND NEISSERIA GONORRHOEAE, AMPLIFIED PROBE; Future; Expected date: 04/19/2024 - CBC WITH WBC DIFFERENTIAL AND ANEMIA REFLEX WORKUP; Future; Expected date: 04/19/2024 - HEPATITIS C ANTIBODY SCREEN WITH PROGRESSION TO HEPATITIS C RNA QUANTITATIVE; Future; Expected date: 04/19/2024 - SYPHILIS ANTIBODY SCREEN WITH REFLEX TO RPR; Future; Expected date: 04/19/2024 - URINALYSIS OBSTETRICS, POINT OF CARE - 50-G GESTATIONAL GLUCOSE, 1 HOUR; Future; Expected date: 04/19/2024 - QNATAL ADVANCED (QUEST); Future; Expected date: 04/19/2024 - COMPREHENSIVE METABOLIC PANEL; Future; Expected date: 04/19/2024 - PROTEIN/ CREATININE RATIO, URINE - CULTURE, URINE, QUANTITATIVE - CHLAMYDIA TRACHOMATIS AND NEISSERIA GONORRHOEAE, AMPLIFIED PROBE Class 1 obesity due to excess calories with serious comorbidity in adult, unspecified BMI - 50-G GESTATIONAL GLUCOSE, 1 HOUR; Future; Expected date: 04/19/2024 Follow Up: Return in about 4 weeks (around 05/17/2024) for yamilex. | For: yamilex | Check-out note: Lab today Glucola with next visit PEREZ Garcia * Briseida Andre CMA - 04/19/2024 12:48 PM EDT 13w0d Denies any concerns documented in this encounter Plan of Treatment Upcoming Encounters Date Type Department Care Team (Late st Contact Info) Description 05/17/2024 1:20 PM EST Laboratory Laboratory, [facility] [address] [place] [address] ChadwickDylon ziegler [facility] [address] [place] [address] 05/17/2024 1:30 PM EST Office Visit Gynecology/Obstetrics [facility] [address] [place] [address] Leydi Ortez CRNP [address] [place] [address] 06/04/2024 7:40 AM EST Office Visit Family Practice [facility] [address] [place] [address] Von Lim MD [address] [place] [address] Pending Results Name Type Priority Associated Diagnoses Date /Time CULTURE, URINE, QUANTITATIVE Lab Routine Multigravida of advanced maternal age in first trimester 04/19/2024 1:13 PM EDT TYPE AND SCREEN Lab Routine Multigravida of [...] in first trimester 04/19/2024 1:16 PM EDT CHLAMYDIA TRACHOMATIS AND NEISSERIA GONORRHOEAE, AMPLIFIED PROBE Lab Routine Multigravida of advanced maternal age in first trimester 04/19/2024 1:13 PM EDT CBC WITH WBC DIFFERENTIAL AND [...] in first trimester 04/19/2024 1:16 PM EDT PROTEIN/ CREATININE RATIO, URINE Lab Routine Multigravida of advanced maternal age in first trimester 04/19/2024 1:13 PM EDT Scheduled Orders Name Type Priority Associated Diagnoses Orde r Schedule CULTURE, URINE, QUANTITATIVE Lab Routine Multigravida of advanced maternal age in first trimester Expected: 04/19/2024, Expires: 04/19/2025 TYPE AND SCREEN Lab Routine Multigravida of advanced maternal age in first trimester Expected: 04/19/2024 (Approximate), Expires: 05/20/2025 RUBELLA IGG ANTIBODY Lab Routine Multigravida of advanced maternal age in first trimester Expected: 04/19/2024 (Approximate), Expires: 04/19/2025 HEPATITIS B SURFACE ANTIGEN Lab Routine Multigravida of advanced maternal age in first trimester Expected: 04/19/2024 (Approximate), Expires: 04/19/2025 HIV ANTIGEN & ANTIBODY SCREEN W/ CONFIRMATION Lab Routine Multigravida of advanced maternal age in first trimester Expected: 04/19/2024, Expires: 04/19/2025 CHLAMYDIA TRACHOMATIS AND NEISSERIA GONORRHOEAE, AMPLIFIED PROBE Lab Routine Multigravida of advanced maternal age in first trimester Expected: 04/19/2024, Expires: 04/19/2025 CBC WITH WBC DIFFERENTIAL AND ANEMIA REFLEX WORKUP Lab Routine Multigravida of advanced maternal age in first trimester Expected: 04/19/2024, Expires: 04/19/2025 HEPATITIS C ANTIBODY SCREEN WITH PROGRESSION TO HEPATITIS C RNA QUANTITATIVE Lab Routine Multigravida of advanced maternal age in first trimester Expected: 04/19/2024, Expires: 04/19/2025 SYPHILIS ANTIBODY SCREEN WITH REFLEX TO RPR Lab Routine Multigravida of advanced maternal age in first trimester Expected: 04/19/2024, Expires: 04/19/2025 50-G GESTATIONAL GLUCOSE, 1 HOUR Lab Routine Multigravida of advanced maternal age in first trimester Class 1 obesity due to excess calories with serious comorbidity in adult, unspecified BMI Expected: 04/19/2024, Expires: 04/19/2025 QNATAL ADVANCED (QUEST) Lab Routine Multigravida of advanced maternal age in first trimester Expected: 04/19/2024, Expires: 04/19/2025 COMPREHENSIVE METABOLIC PANEL Lab Routine Multigravida of advanced maternal age in first trimester Expected: 04/19/2024 (Approximate), Expires: 04/19/2025 Health Maintenance Due Date Last Done Comments [...] Procedure Name Priority Date/Time Associated Diagnosis Comments URINALYSIS OBSTETRICS, POINT OF CARE Routine 04/19/2024 1:14 PM EDT Multigravida of advanced maternal age in first trimester documented in this encounter Results * URINALYSIS OBSTETRICS, POINT OF CARE (04/19/2024 1:14 PM EDT) Color, Urine Yellow Light Yellow, Yellow 04/19/2024 1:16 PM EDT [facility] [place] Clarity, Urine Clear Clear 04/19/2024 1:16 PM EDT [facility] [place] [address] Glucose, Urine Negative Negative mg/dL 04/19/2024 1:16 PM EDT [facility] [place] [address] Bilirubin, Urine Negative Negative 04/19/2024 1:16 PM EDT [facility] [place] [address] Ketone, Urine Negative Negative mg/dL 04/19/2024 1:16 PM EDT [facility] [place] [address] Specific [place], Urine 1.020 1.003 - 1.030 04/19/2024 1:16 PM EDT [facility] [place] [facility] Blood, Urine Negative Negative 04/19/2024 1:16 PM EDT [facility] [place] pH, Urine 6.0 5.0, 5.5, 6.0, 6.5, 7.0, 7.5 units 04/19/2024 1:16 PM EDT LAB[facility] [place] [address] Protein, Urine Negative Negative mg/dL 04/19/2024 1:16 PM EDT [facility] [place] [address] Urobilinogen, Urine 0.2 0.2, 1.0 mg/dL 04/19/2024 1:16 PM EDT [facility] [place] [address] Nitrite, Urine Negative Negative 04/19/2024 1:16 PM EDT [facility] [place] [address] Esterase, Urine Negative Negative 04/19/2024 1:16 PM EDT [facility] [place] Urine 04/19/2024 1:14 PM EDT 04/19/2024 1:16 PM EDT Janee TODD LAB POINT OF CARE TE ST DOCKED DEVICE UNSOLICITED RESULTS LAB[facility]ATORY [place] [address] [place] [address] documented in this encounter Visit Diagnoses Diagnosis Multigravida of advanced maternal age in first trimester- Primary Class 1 obesity due to excess calories with serious comorbidity in adult, unspecified BMI documented in this encounter Care Teams Regulatory And Compliance Technician Relationship Specialty Start Date End Date Vno Lim MD [address] [place] [address] PCP - General Family Medicine 11/14/20 documented as of this encounter"
--- OUTSIDE RECORDS SUMMARY | 2024-09-28 14:42 | External Medical Summary ---
Author Name Unknown Address Unknown Organization : Laboratory Report Ordering Provider Test Date Status ESTPEHANIA REYES 04/19/2024 13:16:18 Final Observation Date Value Abnormality Reference (Units ) Status NUMBER OF FETUSES? 04/19/2024 13:16:18 1 Final ADVANCED MATERNAL AGE? 04/19/2024 13:16:18 YES Final ABNORMAL ZAIDA? 04/19/2024 13:16:18 NO Final ABNORMAL US? 04/19/2024 13:16:18 NOT GIVEN Final PERSONAL/FAM HISTORY? 04/19/2024 13:16:18 NOT GIVEN Final INTERPRETATION 04/19/2024 13:16:18 SEE BELOW Final This specimen showed an expe cted representation of
chromosome 21, 18, and 13 material. Results were
not analyzed or reported for microdeletions. See
'Limitations' below. TRISOMY 21 (T21) 04/19/2024 13:16:18 Negative Final TRISOMY 18 (T18) 04/19/2024 13:16:18 Negative Final TRISOMY 13 (T13) 04/19/2024 13:16:18 Negative Final Y CHROMOSOME 04/19/2024 13:16:18 Not detected Final Y CHR. INTERPRETATION 04/19/2024 13:16:18 SEE BELOW Final Consistent with a female fet us. SEX CHROMOSOME 04/19/2024 13:16:18 No aneuploidy Final SEX CHROMOSOME INTERP 04/19/2024 13:16:18 SEE BELOW Final No apparent abnormality was detected. See
'Limitations' below. MICRODELETION 04/19/2024 13:16:18 Opted Out Final MICRODELETION INTERP 04/19/2024 13:16:18 SEE BELOW Final Results were not analyzed or reported for
microdeletions. GESTATIONAL AGE (IN WEEKS) 04/19/2024 13:16:18 13 Final GESTATIONAL AGE (IN DAYS) 04/19/2024 13:16:18 0 Final FRACTION 04/19/2024 13:16:18 6.14% Final LABORATORY COMMENTS 04/19/2024 13:16:18 SEE BELOW Final Laboratory testing supervise d and results
monitored by Roosevelt Moser, Ph.D., FAC, [facility],
[facility]. LIMITATIONS 04/19/2024 13:16:18 SEE BELOW Final QNatal(R) Advanced is a cell -free DNA screening
test that screens for increased risk of certain
chromosomal abnormalities that may cause
defects, including Trisomy 21 (Down
syndrome), Trisomy 18, Trisomy 13, and certain sex
chromosome abnormalities (i.e., 45,X, 47,XXY,
47,XXX, and 47,XYY), as well as sex. In
addition, if selected as an option, QNatal(R)
Advanced can screen for certain microdeletions
(i.e., 22q, 5p, 1p36, 15q, 11q, 8q, and 4p) that
may cause defects. This test does not assess
the risk of abnormalities such as neural
tube defects or ventral wall defects and should
not be considered in isolation from other clinical
findings and laboratory test results.
QNatal(R) Advanced has been validated in maguire
pregnancies for the trisomies and sex chromosome
abnormalities listed above, as well as for
microdeletions, and for the determination of
sex. Sex chromosome aneuploidy analysis is only
performed in maguire pregnancies. This screening
test has also been validated in twin pregnancies
for the trisomies listed above and for
microdeletions, but not for the sex chromosome
abnormalities due to limited data. This screening
test has not been validated in higher order
pregnancies (more than two) because limited data
is available. Sex chromosomal aneuploidy results
issued for pregnancies confirmed to be of multiple
gestations are not valid and should be
disregarded.
Microdeletion screening is limited to the
specified microdeletion regions (see
'Methodology'). The Y chromosome is analyzed for
the determination of sex. The sensitivity
and specificity of sex determination
analysis may be less than that of the Trisomy 21,
18, and 13 analysis and this determination can be
confounded by vanishing twin syndrome in
pregnancies that were originally multiple
gestation pregnancies. It should be noted that
QNatal(R) Advanced is a quantitative analysis of
maternal and placental cfDNA. As a result, the
accuracy of screening results may be affected by
the presence of chromosome abnormalities or
microdeletions that are maternal or confined
placental in origin. SPECIFICATIONS 04/19/2024 13:16:18 SEE BELOW Final Sensitivity Specificity
T21 >99.9% >99.9%
T18 >99.9% >99.9%
T13 >99.9% >99.9%
Accuracy
Y >99.9%
Performance of the QNatal Advanced
laboratory-developed test (LDT) has been
determined based on internal analytical
assessment. METHODOLOGY 04/19/2024 13:16:18 SEE BELOW Final Circulating cell-free (cf) D NA was isolated from
plasma followed by detection on a massively
parallel sequencing platform. Bioinformatic
analysis was performed to determine the
representation of chromosomes 21, 18, 13, X and Y
in circulating cell-free DNA. The representation
of sequences from the critical regions involved in
1p36 microdeletion syndrome (1p36),
Rucker-Hirschhorn syndrome (4p), Cri-du-chat
syndrome (5p), Nhung-Giedion syndrome (8q),
Cruz syndrome (11q), Prader Willi
syndrome/Angelman syndrome (15q), and DiGeorge
syndrome (22q) is evaluated for the detection of
microdeletions if requested. Performance
characteristics refer to the analytical
performance of this screening test. This screening
test is performed pursuant to a license agreement
with [id number].
QNatal Advanced is a laboratory developed test
that has been developed and validated, pursuant to
the Clinical Laboratory Improvements Amendments of
1988 (CLIA), and as such it has not been reviewed
by FDA.
Test performed by [facility]
[address],
[place] [address]

Shoe Folder: Wendy Motta MD,PHD,JONNIE
Test Reported by [facility],
[facility],
[address] [place], [place]
Gordon Hudson M.D., Ph.D., Director of Laboratories
, CLIA [id number] Performing Location
--- OUTSIDE RECORDS SUMMARY | 2024-09-28 14:42 | External Medical Summary | Summary of Care ---
Author Name Unknown Organization [facility] Address [address] [place] [address] Phone [phone] Care Team Providers Care Guidance Consultant Name Role Phone Von Lim MD Primary Care Provider [phone] Reason for Visit * Reason Comments New Visit Encounter Details Date Type Department Care Team (Late st Contact Info) Description 04/01/2024 1:00 PM EDT Nurse Only Gynecology/Obstetrics [facility] [address] [place] [address] Gw, Nurse Research Project Manager New [address] [place] [address] New Visit Allergies No known active allergiesdocumented as of this encounter (statuses as of 04/01/2024) Medications Medication Sig Dispensed Refills Start Date [...] as of this encounter (statuses as of 04/01/2024) Active Problems Problem Noted Date Diagnosed Date Obesity, Class I, BMI 30.0-34.9 (see actual BMI) 05/30/2021 OAB (overactive bladder) 05/28/2021 Comments Yes documented as of this encounter (statuses as of 04/01/2024) Resolved Problems Problem Noted Date Diagnosed Date Resolved Date NO KNOWN PROBLEMS 10/31/2008 05/28/2021 documented as of this encounter (statuses as of 04/01/2024) Immunizations Name Administration Dates Next Due H1N1 [...] 01/15/2024 Does the household have a re lar [...] ages 0-17 years) Not on file 01/15/2024 Comments Yes Sex and Gender Information Value Date Recorded Sex Assigned at Female 10/30/2022 7:49 AM EDT Gender Identity Female 10/30/2022 7:49 AM EDT Sexual Orientation Straight 10/30/2022 7: 49 AM EDT Job Start Date Occupation Industry Not on file Not on file Not on file documented as of this encounter Last Filed Vital Signs Vital Sign Reading Time Taken Comments Blood Pressure - - Pulse - - Temperature - - Respiratory Rate - - Oxygen Saturation - - Inhaled Oxygen Concentration - - Weight 76.2 kg (168 lb) 04/01/2024 1:04 PM EDT Height - - Body Mass Index 31.76 01/15/2024 2:24 PM EDT documented in this encounter Nursing Notes * June Perdomo RN - 04/01/2024 1:05 PM EDT Patient called for NOB LMP 01/19/2024 + Nausea Taking Intake completed Triage number given Education given June Perdomo RN documented in this encounter Plan of Treatment Upcoming Encounters Date Type Department Care Team (Late st Contact Info) Description 04/19/2024 12:30 PM EDT Imaging Radiology [address] [place] [id number] 04/19/2024 1:45 PM EDT Office Visit Gynecology/Obstetrics [facility] [address] [place] [address] Janee Leos CRNP [address] [place] [address] 06/04/2024 7:40 AM EST Office Visit Family Practice [facility] [address] [place] [address] Von Lim MD [address] [place] [address] Health Maintenance Due Date Last Done Comments [...] filedocumented as of this encounter Care Teams Guidance Consultant Relationship Specialty Start Date End Date Von Lim MD [address] [place] [address] PCP - General Family Medicine 11/14/20 documented as of this encounter
--- OUTSIDE RECORDS SUMMARY | 2024-09-28 14:42 | External Medical Summary ---
Author Name Unknown Address Unknown Organization [id number]:LABORATORY [facility] [place] - [facility] [address] [place] [address] Laboratory Report Ordering Provider Test Date Status ESTEPHANIA REYES 04/19/2024 13:13:01 Final Observation Date Value Abnormality Reference (Units ) Status Chlamydia trachomatis rRNA [Presence] in Specimen by FLOYD with probe detection 04/19/2024 13:13:01 Negative Negative Final No Chlamydia trachomatis det ected by drapery worker-mediated nucleic acid amplification. Neisseria gonorrhoeae rRNA [ Presence] in Specimen by FLOYD with probe detection 04/19/2024 13:13:01 Negative Negative Final No Neisseria gonorrhoeae det ected by drapery worker-mediated nucleic acid amplification. Performing Location LABORATORY [facility] [place] - [address] [place] [address]
--- OUTSIDE RECORDS SUMMARY | 2024-09-28 14:42 | External Medical Summary ---
Author Name Unknown Address Unknown Organization K01:LAB[facility]ATORY [facility] - [address] [place] [address] Laboratory Report Ordering Provider Test Date Status ESTEPHANIA REYES 04/19/2024 13:16:18 Final Observation Date Value Abnormality Reference (Units ) Status Hep C Ab 04/19/2024 13:16:18 Negative Negative Final Further HCV quantitative rosana ting not performed per protocol. Performing Location LABORATORY [facility] - [address] [place] [address]
--- OUTSIDE RECORDS SUMMARY | 2024-09-28 14:42 | External Medical Summary ---
Author Name Unknown Address Unknown Organization : Laboratory Report Ordering Provider Test Date Status CESAR MCCORMICK 05/17/2024 14:22:22 Final Observation Date Value Abnormality Reference (Units ) Status INTERPRETATION 05/17/2024 14:22:22 SEE BELOW Final Screen negative for open NTD RISK FOR ONTD 05/17/2024 14:22:22 1:1307 Final CALC'D GESTATIONAL AGE 1105/17/2024 14:22:22 17 Final AFP, SERUM 05/17/2024 14:22:22 63.2 (ng/mL) Final AFP MOM 05/17/2024 14:22:22 1.79 Final Reference Range:
NTD <2 .50
IDD <1.90
TWINS <4.00
TWINS IDD <3.50
TRIPLETS <4.50
The AFP test result indicates that this patient is
screen negative for open NTD. It should be noted
that normal test results can never guarantee the
of a normal baby and that 2-3% of newborns
have some type of physical or mental defect, many
of which are undetectable through any known
diagnostic technique.
This is a screening test, not a diagnostic test.
This risk assessment report is based in part on
demographic data provided by the ordering
physician. Please notify the laboratory promptly
if any data are incorrect. For assistance with
recalculations, please call your local [facility] laboratory. For assistance with
interpretation of these results, please contact
your Local [facility] genetic counselor or
call [phone] ([phone]).
Interpretive Cutoffs
Screen Positive for Open NTD:
> or = 2.50 adjusted MOM
> or = 1.90 adjusted MOM for insulin-dependent diabetics
> or = 4.00 adjusted MOM for twins
> or = 3.50 adjusted MOM for twins insulin-dependent diabetics
> or = 4.50 adjusted MOM for triplets
For additional information, please refer to
[email or web address]
(This link is being provided for
informational/educational purposes only.) DATE OF 05/17/2024 14:22:22 1985 Final COLLECTION DATE 05/17/2024 14:22:22 05/17/2024 Final MATERNAL WEIGHT 05/17/2024 14:22:22 172 (lbs ) Final EST'D DATE OF DELIVERY 05/17/2024 14:22:22 10/25/2024 Final MEKA DETERMINED BY 05/17/2024 14:22:22 NG Final MOTHER'S ETHNIC ORIGIN 05/17/2024 14:22:22 WHITE Final NUMBER OF FETUSES 05/17/2024 14:22:22 1 Final INSULIN DEPEND DIABETIC 05/17/2024 14:22:22 NO Final REPEAT SPECIMEN 05/17/2024 14:22:22 NO Final HX OF NEURAL TUBE DEFECTS 05/17/2024 14:22:22 NO Final PREV DOWN SYND 05/17/2024 14:22:22 NO Final DONOR EGG 05/17/2024 14:22:22 NO Final DONOR AGE: EGG RETRIEVAL 05/17/2024 14:22:22 NOT GIVEN Final Test performed by [facility]
[address],
[place] [address]

Gem Carver: Wendy Motta MD,PHD,[place]ONNIE
Test Reported by Quirino Cheng,
[facility],
[address] [place], [place]
Gordon Hudson M.D., Ph.D., Director of Laboratories
, [facility] [id number] Performing Location
--- OUTSIDE RECORDS SUMMARY | 2024-09-28 14:42 | External Medical Summary ---
Author Name Unknown Address Unknown Organization [id number][facility] [address] [place] [address] Laboratory Report Ordering Provider Test Date Status ERICESTEPHANIA 05/17/2024 14:22:22 Final Observation Date Value Abnormality Reference (Units ) Status Glucose [Moles/volume] in Serum or Plasma --1 hour post 50 g glucose PO 05/17/2024 14:22:22 149 Above high normal 70-129 (mg/dL) Final Performing Location LABORATORY [facility] - [address] [place] [address]
--- OUTSIDE RECORDS SUMMARY | 2024-09-28 14:42 | External Medical Summary ---
Author Name Unknown Address Unknown Organization [id number]:[facility]ORY [facility] [place] [address] [place] [address] Laboratory Report Ordering Provider Test Date Status ERIC,ESTEPHANIA 04/19/2024 13:16:18 Final Observation Date Value Abnormality Reference (Units ) Status SYNC LEUKOCYTES IN BLOOD BY AUTOMATED COUNT 04/19/2024 13:16:18 7.86 4.00-10.80 (K/uL) Final Segs 04/19/2024 13:16:18 57.5 40.0-75.0 (%) Final Lymphs % 04/19/2024 13:16:18 34.0 18.0-42.0 (%) Final Monos 04/19/2024 13:16:18 7.0 1.0-11.0 (%) Final Eosinophils 04/19/2024 13:16:18 0.8 0.0-6.0 (%) Final Basos 04/19/2024 13:16:18 0.4 0.0-2.0 (%) Final Immature Granulocyte, Percent 04/19/2024 13:16:18 0.3 0.0-2.0 (%) Final Absolute Segs 04/19/2024 13:16:18 4.53 1.80-7.70 (K/uL) Final Lymphs, absolute 04/19/2024 13:16:18 2.67 1.00-4.80 (K/ul) Final Monos, Abs 04/19/2024 13:16:18 0.55 0.00-1.10 (K/uL) Final Eos, Abs 04/19/2024 13:16:18 0.06 0.00-0.70 (K/uL) Final Basos, Abs 04/19/2024 13:16:18 0.03 0.00-0.20 (K/uL) Final Immature Granulocytes, Number 04/19/2024 13:16:18 0.02 0.00-0.20 (K/uL) Final Performing Location LAB[facility]ATORY [facility] [place] - [address] [facility] [address]
--- OUTSIDE RECORDS SUMMARY | 2024-09-28 14:42 | External Medical Summary ---
Author Name Unknown Address Unknown Organization K01:LAB[facility]ATORY [facility] [place] [address] [place] [address] Laboratory Report Ordering Provider Test Date Status ESTEPHANIA REYES 04/19/2024 13:16:18 Final Observation Date Value Abnormality Reference (Units ) Status WBC, Total 04/19/2024 13:16:18 7.86 4.00-10.8 0 (K/uL) Final RBC 04/19/2024 13:16:18 3.92 3.85-5.15 (M/uL) Final Hemoglobin 04/19/2024 13:16:18 12.1 12.0-15.3 (g/dL) Final Anemia reflex testing trigge rs on a HGB < 12.0 for Females and HGB < 13.0 for Males in accordance with the WHO Anemia Guidelines
Anemia reflex testing triggers on a HGB < 12.0 for Females and HGB < 13.0 for Males in accordance with the WHO Anemia Guidelines HCT 04/19/2024 13:16:18 37.0 36.0-45.2 (%) Final MCV 04/19/2024 13:16:18 94.4 81.5-97.5 (fL) Final MCH 04/19/2024 13:16:18 30.9 27.0-34.0 (pg) Final MCHC 04/19/2024 13:16:18 32.7 32.0-36.0 (g/dL) Final RDW 04/19/2024 13:16:18 13.2 11.5-15.5 (%) Final Platelets 04/19/2024 13:16:18 288 140-400 (K /uL) Final MPV 04/19/2024 13:16:18 11.4 6.6-11.1 ( fL) Final Nucleated erythrocytes/100 leukocytes [Ratio] in Blood by Automated count 04/19/2024 13:16:18 0 <=0 (/100 WBCs) Fi nal Performing Location [facility] - [address] [facility] [address]
--- OUTSIDE RECORDS SUMMARY | 2024-09-28 14:42 | External Medical Summary ---
Author Name Unknown Address Unknown Organization K01:LABORATORY [facility] - [address] [place] [address] Laboratory Report Ordering Provider Test Date Status ESTEPHANIA REYES 04/19/2024 13:16:18 Final Observation Date Value Abnormality Reference (Units ) Status Hep B surface Ag 04/19/2024 13:16:18 Negative Neg ative Final Performing Location [facility] [address] [facility] [place] [address]
--- OUTSIDE RECORDS SUMMARY | 2024-09-28 14:42 | External Medical Summary ---
Author Name Unknown Address Unknown Organization K01:LABORATORY [facility] [place] - [address] [place] [address] Laboratory Report Ordering Provider Test Date Status ESTEPHANIA REYES 04/19/2024 13:16:18 Final Observation Date Value Abnormality Reference (Units ) Status Treponema pallidum Ab [Presence] in Serum by Immunoassay 04/19/2024 13:16:18 Nonreactive Nonreactive Final No serologic evidence of syp hilis. No additional testing clinicially indicated at this time. Consider repeat testing in 2-4 weeks if acute or primary syphilis is suspected. Performing Location LABORATORY [facility] [place] - [address] [place] [address]
--- OUTSIDE RECORDS SUMMARY | 2024-09-28 14:42 | External Medical Summary ---
Author Name Unknown Address Unknown Organization K01:[facility] [place] [address] [place] [facility] Laboratory Report Ordering Provider Test Date Status ERICESTEPHANIA 04/19/2024 13:13:01 Final Observation Date Value Abnormality Reference (Units) Status Bacteria identified in Specimen by Culture 04/19/2024 13:13:01 No significant growth Final Test: Culture, Urine, Quant itative
Specimen Source: Urine, Clean Catch
Specimen Type: Urine
Specimen Date: 04/19/2024 1313
Result Date: 04/20/2024 1154
Result Status: Final result
Resulting Lab: [facility] [place]
[address]
[place] [address]

CULTURE

No significant growth

null Performing Location [facility] [place] [address] [place] [address]
[2024-09-28] MEDS: IBUPROFEN 600 MG TAB PO PRN (19:52)
[2024-09-28] MEDS: DOCUSATE SODIUM 100 MG CAP PO SCH (20:47)
[2024-09-28] MEDS ORDERED: CALCIUM CARBONATE 500 MG CHEWABLE TAB PO PRN (21:27)
--- NOTE | 2024-09-28 21:37 | Anesthesia Procedure Note ---
Date of Service September 28, 2024 Anesthesia Post Epidural Note Vital Signs Vital Signs: Temp Pulse Resp BP Pulse Ox O2 Del Method 37.5 C 85 20 123/80 96 Room Air 09/28/24 19:45 09/28/24 19:45 09/28/24 19:45 09/28/24 19:45 09/28/24 19:45 09/28/24 19:45 Pain Intensity Bilateral Episiotomy/Laceration: Pain Intensity: 0 Notes Mental Status: alert / awake / arousable Nausea / Vomiting: adequately controlled Pain: adequately controlled Airway Patency, RR, SpO2: stable & adequate BP & HR: stable & adequate Hydration State: stable & adequate Neuraxial Anesthesia: was administered and sensory block is resolving Anesthetic Complications: no major complications apparent and Pt Satisfied with anesthetic care Epidural: Removed without complications and With tip intact
[2024-09-29 06:16] LABS: Hematocrit (blood only) 30.4 % (37.0-47.0); Hemoglobin 10.2 g/dl (12.0-16.0); Mean Corpuscular Hemoglobin 30.4 pg (25.0-34.0); Mean Corpuscular Hgb Conc 33.6 g/dL (32.0-36.0); Mean Corpuscular Volume 90.5 fL (80.0-100.0); Mean Platelet Volume 11.5 fL (9.4-12.4); Platelet Count 204 K/uL (130-400); RDW Standard Deviation 46.2 fL (36.4-46.3); Red Blood Count 3.36 M/uL (4.20-5.40)
[2024-09-29] MEDS: BENZOCAINE 20% SPRY 85 APPLN/85 GM CAN EXT PRN (08:33)
[2024-09-29] MEDS: PRENATAL VITAMIN 1 TAB PO SCH (08:33)
--- NOTE | 2024-09-29 09:33 | Obstetrical Progress Note ---
Date of Service September 29, 2024 Assessment & Plan Admission and Anticipated Discharge Date Admission Date: September 28, 2024 Subjective Patient is seen and examined. She feels well, no complaints. Ambulating without dizziness Voiding without difficulty Tolerating regular diet with out N&V Bleeding is minimal No fever/ chills/ CP/ SOB/ N&V/ Leg pain Breast and bottle feeding without problems Lab Results 09/28/24 09/28/24 09/28/24 Range/Units 09:49 12:21 12:21 WBC 15.63 H (4.8-10.8) K/ul RBC 3.61 L (4.20-5.40) M/uL Hgb 11.0 L (12.0-16.0) g/dl Hct 33.4 L (37.0-47.0) % MCV 92.5 (80.0-100.0) fL MCH 30.5 (25.0-34.0) pg MCHC 32.9 (32.0-36.0) g/dL RDW Std Deviation 46.0 (36.4-46.3) fL RDW Coeff of Chris 13.6 (11.5-14.5) % Plt Count 210 (130-400) K/uL MPV 11.9 (9.4-12.4) fL Cord ABG pH 7.32 (7.1-7.38) Cord ABG pCO2 40 (39.1-73.5) mmHg Cord ABG pO2 31 (4.1-31.7) mmHg Cord ABG HCO3 21 (19.7-28.5) mmol/L Cord ABG Base Excess -5.2 (-9-1.8) mEq/L Cord ABG O2 Sat 65.1 H (<60) % Cord VBG pH 7.22 (7.20-7.44) Cord VBG pCO2 61 H (30.4-57.2) mmHg Cord VBG pO2 < 20 (14.1-43.3) mmHg Cord VBG HCO3 25 (18.4-26.8) mmol/L Cord VBG Base Excess -3.8 (-7.7-1.9) mEq/L Cord VBG O2 Sat < 60.0 (<68) % Blood Gas Comments LUGO LUGO Treponema pallidum Ab Negative (Negative) 09/29/24 Range/Units 05:48 WBC 14.40 H (4.8-10.8) K/ul RBC 3.36 L (4.20-5.40) M/uL Hgb 10.2 L (12.0-16.0) g/dl Hct 30.4 L (37.0-47.0) % MCV 90.5 (80.0-100.0) fL MCH 30.4 (25.0-34.0) pg MCHC 33.6 (32.0-36.0) g/dL RDW Std Deviation 46.2 (36.4-46.3) fL RDW Coeff of Chris 14.0 (11.5-14.5) % Plt Count 204 (130-400) K/uL MPV 11.5 (9.4-12.4) fL Cord ABG pH (7.1-7.38) Cord ABG pCO2 (39.1-73.5) mmHg Cord ABG pO2 (4.1-31.7) mmHg Cord ABG HCO3 (19.7-28.5) mmol/L Cord ABG Base Excess (-9-1.8) mEq/L Cord ABG O2 Sat (<60) % Cord VBG pH (7.20-7.44) Cord VBG pCO2 (30.4-57.2) mmHg Cord VBG pO2 (14.1-43.3) mmHg Cord VBG HCO3 (18.4-26.8) mmol/L Cord VBG Base Excess (-7.7-1.9) mEq/L Cord VBG O2 Sat (<68) % Blood Gas Comments Treponema pallidum Ab (Negative) Vital Signs Temp Pulse Resp BP Pulse Ox O2 Del Method 09/29/24 04:40 36.8 C 75 18 128/76 97 Room Air 09/29/24 00:45 36.8 C 88 18 132/82 95 Room Air PE: General: Alert, orientedx3, NAD Abd: soft, NT, fundus firm, below Umbilicus Perineum intact, Lochia rubra minimal Ext; NT, no edema AP: 39 yo s/p , ppd# 1 VSS Afebrile doing well Continue routine care All questions were answered D/C home tomorrow Results & Data Vital Signs (Past 12 Hours) Vital Signs Temp Pulse Resp BP Pulse Ox O2 Del Method 09/29/24 04:40 36.8 C 75 18 128/76 97 Room Air 09/29/24 00:45 36.8 C 88 18 132/82 95 Room Air
[2024-09-29 13:11] VITALS: RESP 16
[2024-09-29] MEDS: bisacodyL 5 MG TABEC PO SCH (21:15)
[2024-09-30 06:46] LABS: Hematocrit (blood only) 30.7 % (37.0-47.0); Hemoglobin 10.2 g/dl (12.0-16.0)
--- NOTE | 2024-09-30 11:43 | Obstetrical Progress Note ---
Date of Service September 30, 2024 Subjective Ambulation: ambulating normally Voiding: no voiding problems Passing Gas:: Yes Diet Tolerance:: regular diet Lochia:: Small Feeding Type:: breast feeding Current Pain Level(1-10): 0 doing well. Physical Exam Constitutional WD/WN, vitals as above Eyes PERRL, conjunctivae normal, anicteric sclerae Gastrointestinal (Abdomen) Inspection/Auscultation: abdomen normal to inspection abdomen soft and non-tender. fundus firm below U Musculoskeletal Extremities: extremities normal to inspection Neurologic patellar DTR's 2+ bilat, sensation intact Psychiatric A+Ox3, euthymic affect Results & Data Vital Signs (Past 12 Hours) Vital Signs Temp Pulse Resp BP Pulse Ox O2 Del Method 09/30/24 07:07 36.9 C 71 16 133/76 96 Room Air 09/30/24 00:00 36.5 C 74 16 99/62 L Room Air
[2024-09-30 15:16] VITALS: BP 131/76; PULSE 90; TEMP 99; O2SAT 97
== END 2024-09-30 18:35 | disposition home or self-care (01) | DRG 805 ==
LOC: OPB 08:13 → 4S1 08:15 → 4E2 16:14